=== PATIENT | female | born 1965 | race Caucasian/White ===

== ENCOUNTER 2018-03-20 13:49 | Day surgery (SDC) | payer OTHER, SELFPAY ==
[2018-03-20] MEDS ORDERED: Atropine Sulfate 1% Ophth Ointment 3.5 gm Tube ONE (14:10)
[2018-03-20] MEDS ORDERED: Lidocaine 4% PF 5 ML AMP ONE (14:10)
[2018-03-20] MEDS ORDERED: PROPOFOL 200 MG/20 ML VIAL ONE (14:10)
[2018-03-20] MEDS ORDERED: Maxitrol 0.1% Opth Oint 3.5 GM TUBE ONE (14:10)
[2018-03-20] MEDS ORDERED: ePHEDrine/0.9% NaCl/PF SYRINGE 50 mg/10 ml ONE (14:10)
[2018-03-20] MEDS ORDERED: CEFAZOLIN 1 GM VIAL ONE (14:10)
[2018-03-20] MEDS ORDERED: Lidocaine 1% PF 5 ML VIAL ONE ×2 (14:10)
[2018-03-20] MEDS ORDERED: Ondansetron PF 4 MG/2 ML Vial ONE ×2 (14:10→14:35)
[2018-03-20] MEDS ORDERED: Bupivacaine 0.75% 10 ML AMP ONE (14:10)
[2018-03-20] MEDS ORDERED: Triamcinolone 40 MG/ML VIAL ONE (14:10)
[2018-03-20 14:20] LABS: #Basophils 0.1 thou/uL (0.0-0.2); #Eosinphils 0.1 thou/uL (0.0-0.7); #Lymphocytes 2.7 thou/uL (1.20-3.40); #Monocytes 0.5 thou/uL (0.11-0.59); #Neutrophils 5.9 thou/uL (1.40-6.50); %Basophils 1.3 % (0.0-1.0); %Eosinophils 1.5 % (0.0-10.0); %Lymphocytes 28.8 % (21.0-51.0); %Monocytes 5.3 % (0.0-10.0); %Neutrophils 63.1 % (42.0-75.0); Hemoglobin 10.1 g/dL (12.0-16.0); Mean Corpuscular HGB CONC 33.2 g/dL (32.0-36.0); Mean Corpuscular Hemoglobin 29.1 pg (27.0-31.0); Mean Corpuscular Volume 87.7 fL (78.0-98.0); Mean Platelet Volume 6.6 fL (7.4-10.4); Platelet Count 349 thou/uL (130-400); RBC Distribution Width 13.3 % (11.5-14.5); Red Blood Cell (RBC) Count 3.47 mill/uL (4.20-5.40); White Blood Cell (WBC) Count 9.3 thou/uL (4.8-10.8)
[2018-03-20] MEDS ORDERED: EPINEPHrine 0.3 MG, Dextrose 50% 3 ML in Ophthalmic Irrigation Solution 500 ML FS SCH (14:31)
[2018-03-20] MEDS ORDERED: Morphine 4 MG/ML VIAL ONE (14:35)
[2018-03-20 14:38] LABS: ALT (SGPT) 13 U/L (8-55); AST (SGOT) 16 U/L (5-34); Albumin 2.9 g/dL (3.5-5.0); Alkaline Phosphatase 65 U/L (40-150); Anion Gap 10 mmol/L (10-20); BUN (Urea Nitrogen) 14 mg/dL (9.8-20.1); Bilirubin, Total 0.2 mg/dL (0.2-1.2); Calc. Creatinine Clearance 0 mL/min (70-130); Calcium 8.8 mg/dL (7.8-10.44); Carbon Dioxide 28 mmol/L (22-29); Chloride 104 mmol/L (98-107); Estimated GFR-MDRD 59; Globulin 3.1 g/dL (2.4-3.5); Glucose 151 mg/dL (70-105); Potassium 3.8 mmol/L (3.5-5.1); Sodium 138 mmol/L (136-145)
[2018-03-20 14:41] LABS: PTT 36.9 SEC (22.9-36.1); Prothrombin Time 22.9 SEC (12.0-14.7)
[2018-03-20] MEDS ORDERED: Phenylephrine 2.5% Ophth Soln 5 ML BOT ONE (16:20)
[2018-03-20] MEDS ORDERED: Cyclopentolate 1% Opth Drop 2 ML BOT ONE (16:20)
[2018-03-20] MEDS ORDERED: Fentanyl 100 MCG/2 ML VIAL ONE ×2 (17:06→17:24)
--- NOTE | 2018-03-21 03:34 | OP ---
DATE OF PROCEDURE: 03/20/2018 PREOPERATIVE DIAGNOSIS: Neovascular glaucoma, left eye. POSTOPERATIVE DIAGNOSIS: Neovascular glaucoma, left eye. PROCEDURES PERFORMED: Pars plana vitrectomy, membrane peel, panretinal photocoagulation, tube shunt, and scleral patch graft; left eye. ANESTHESIA: General endotracheal anesthesia. PROCEDURE IN DETAIL: The patient was identified in the preoperative holding area. Appropriate informed consent for the planned surgical procedure on the left eye had been obtained. The patient was transported to the operative suite. Appropriate cardiopulmonary monitoring was established. General endotracheal anesthesia was initiated. A retroorbital block was placed. The patient was prepped and draped in the usual sterile manner for ophthalmic surgery in left eye. Lid speculum was placed in the left eye. A FP7 tube shunt was placed through a conjunctival incision superotemporally, fixated in place with 5-0 Mersilene sutures. Trocar was placed superotemporally, inferotemporally, and superonasally. Infusion line was placed inferotemporally, and light pipe vitreous cutter was inserted into the eye. Core vitrectomy was performed. Posterior hyaloid face was elevated, and membranes were peeled and trimmed off the retinal surface. Panretinal photocoagulation was placed into all nontreated areas of the retina. Tube shunt was introduced through the superior temporal sclerotomy and a tutoplast graft was placed over the tube shunt and and fixated in place with 7-0 Vicryl suture. Conjunctiva was placed with 6-0 plain gut suture. Retrobulbar Kenalog and subconjunctival Ancef were placed. Atropine antibiotic ointment was placed. Eye was patched and shielded. The patient was taken to postoperative recovery unit in good condition having suffered no immediate perioperative complications. The patient was instructed to keep patch and shield on, avoid lifting and bending. Followup appointment with Dr. Rodriguez. Job ID: [id number] [facility]
== END 2018-03-20 20:43 | disposition home or self-care (01) ==
LOC: ERS 13:49 → SDC 16:20
PROVIDERS: ATTEND Ophthalmology Retina Specialist
PROC: 08NF3ZZ Release Left Retina, Percutaneous Approach (ICD-10-PCS; principal; 2018-03-20)
PROC: 08T53ZZ Resection of Left Vitreous, Percutaneous Approach (ICD-10-PCS; principal; 2018-03-20)
PROC: 08133J4 Bypass Left Anterior Chamber to Sclera with Synthetic Substitute, Percutaneous Approach (ICD-10-PCS; principal; 2018-03-20)
DX: H40.89 Other specified glaucoma (principal); H40.2223 Chronic angle-closure glaucoma, left eye, severe stage; H43.12 Vitreous hemorrhage, left eye; I25.2 Old myocardial infarction; E11.319 Type 2 diabetes mellitus with unspecified diabetic retinopathy without macular edema; G47.30 Sleep apnea, unspecified; E78.5 Hyperlipidemia, unspecified; I10 Essential (primary) hypertension; F17.210 Nicotine dependence, cigarettes, uncomplicated; E66.9 Obesity, unspecified; Z86.73 Personal history of transient ischemic attack (TIA), and cerebral infarction without residual deficits; Z88.8 Allergy status to other drugs, medicaments and biological substances
CPT/HCPCS: 36415; 80053; 85025; 85610; 85730; 93005; 96361; 96374; 96375; J0171; J0690; J2001; J2270; J2405; J2704; J3010; J3301; J3490

== ENCOUNTER 2019-10-14 20:33 | Inpatient (IN) | payer OTHER ==
[~2019-10-14 20:33] MED LIST: Iopamidol-370 76% 500 ML 1 ML ONE
--- NOTE | 2019-10-14 20:51 | CT ---
CT Brain WO Con: 10/14/2019 8:38 PM CLINICAL HISTORY: Level 1 stroke with right-sided weakness. IMAGING TECHNIQUE: Multiple CT images were obtained of the brain without IV contrast. COMPARISON: MR the brain from [facility] dated May 25, [address] of the h ead dated every 2019 FINDINGS: BRAIN: Evidence of acute infarct: None. Evidence of chronic ischemic change:The moderate to severe chronic small vessel white matter ischemic changes similar appearing. Remote lacunar infarcts involving the subcortical left frontal lobe, bilateral thalami and brainstem appear similar. Evidence of intracranial hemorrhage: None. Evidence of midline shift: Third ventricle and septum pellucidum are midline. Ventricles: Normal. No hydrocephalus. SKULL: Intact. VISUALIZED PARANASAL SINUSES: Clear. MASTOID AIR CELLS: Clear. EXTRACRANIAL SOFT TISSUES: Normal. IMPRESSION: 1. No acute intracranial abnormality. 2. Stable chronic ischemic change. 3. Findings called to Dr. Garcia at 8:47 PM on October 14, 2019
[2019-10-14 20:58] LABS: #Basophils 0.1 thou/uL (0.0-0.2); #Eosinphils 0.2 thou/uL (0.0-0.7); #Monocytes 0.5 thou/uL (0.11-0.59); #Neutrophils 5.7 thou/uL (1.40-6.50); %Basophils 0.8 % (0.0-1.0); %Eosinophils 2.6 % (0.0-10.0); %Lymphocytes 23.7 % (21.0-51.0); %Monocytes 6.2 % (0.0-10.0); %Neutrophils 66.8 % (42.0-75.0); Hemoglobin 12.1 g/dL (12.0-16.0); Mean Corpuscular HGB CONC 33.4 g/dL (32.0-36.0); Mean Corpuscular Hemoglobin 30.5 pg (27.0-31.0); Mean Corpuscular Volume 91.2 fL (78.0-98.0); Mean Platelet Volume 7.4 fL (7.4-10.4); Platelet Count 316 thou/uL (130-400); RBC Distribution Width 11.6 % (11.5-14.5); Red Blood Cell (RBC) Count 3.99 mill/uL (4.20-5.40); White Blood Cell (WBC) Count 8.6 thou/uL (4.8-10.8)
[2019-10-14 21:03] LABS: INR-International Normal Ratio 0.9; PTT 27.6 sec (22.9-36.1); Prothrombin Time 12.1 sec (12.0-14.7)
[2019-10-14 21:13] LABS: ALT (SGPT) 8 U/L (8-55); AST (SGOT) 10 U/L (5-34); Albumin 2.8 g/dL (3.5-5.0); Alkaline Phosphatase 70 U/L (40-110); Anion Gap 12 mmol/L (10-20); BUN (Urea Nitrogen) 31 mg/dL (9.8-20.1); Bilirubin, Total 0.2 mg/dL (0.2-1.2); CK (CPK) 71 U/L (29-168); Calc. Creatinine Clearance 0 mL/min (70-130); Calcium 8.2 mg/dL (7.8-10.44); Carbon Dioxide 21 mmol/L (22-29); Chloride 108 mmol/L (98-107); Estimated GFR-MDRD 24; Globulin 3.3 g/dL (2.4-3.5); Glucose 148 mg/dL (70-105); Potassium 4.2 mmol/L (3.5-5.1); Protein, Total 6.1 g/dL (6.0-8.3); Sodium 137 mmol/L (136-145)
[2019-10-14] MEDS ORDERED: niCARdipine 20MG In NaCl 20 MG/200 ML BAG ONE (21:20)
--- NOTE | 2019-10-14 21:20 | CT ---
CTA of the head with IV contrast and 3-D reformatted imaging. CTA of the neck with IV contrast and 3-D reformatted imaging. INDICATION: Level 1 stroke with right-sided weakness COMPARISON: None FINDINGS: CTA OF THE HEAD WITH CONTRAST: CTA OF THE BRAIN: Right ICA: There are moderate calcifications involving the cavernous ICA inducing some qaoy-zq-arrah ate narrowing. No overt hemodynamically significant stenosis is demonstrated. Right MCA: Patent. Right AMBER: Patent. ACOM: Patent. Left ICA: Moderate atherosclerotic calcification is seen involving the cavernous ICA with moderate n arrowing. No hemodynamically significant stenosis is demonstrated. Left MCA: Patent. Left AMBER: Patent. PCOMs: Patent. Vertebral arteries: There is a 1.7 mm aneurysm involving the left intracranial vertebral artery on i mage 180 of series 2 this aneurysm appears partially calcified and may be partially thrombosed. Basilar Artery: There is a small punctate focus seen centrally within the lower basilar artery on a single slice (188 of series 2) suspicious for a tiny focal dissection. This is felt to persist on the coronal reformatted images but is not well-seen on the sagittal images. 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 Incidentals: None. CTA OF THE NECK WITH CONTRAST: Right CCA: There is mild calcifications involving the right carotid bulb. No hemodynamically signifi cant stenosis demonstrated. Right ICA: There is some mild atherosclerotic irregularity involving the proximal right ICA without hemodynamically significant stenosis. Right Subclavian: Patent. Right Vertebral Artery: Patent. Left CCA: The left common carotid artery arises from the brachiocephalic which is a common variant. Left ICA: There is mild partially calcified atherosclerotic plaque involving the proximal left ICA w ithout hemodynamically significant stenosis. Left Subclavian: Patent. Left Vertebral Artery: There is moderate narrowing involving the origin of the left vertebral artery . The remaining course of the left vertebral artery appears patent. Aerodigestive tract: Clear. Parotids/Submandibular/Thyroid glands: Normal. Lymph nodes: No pathologically enlarged lymph nodes. Lung Apices: Clear. Bones: No acute osseous abnormality. Incidentals: None. IMPRESSION: 1. Small suspected focal dissection flap versus intraluminal thrombus of the lower basilar artery. 2. 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 There is a small calcification associated with this outpouching and may reflect that it is partially thrombosed. 3. Moderate narrowing of the origin of the left vertebral artery. 4. Findings called to Dr. Garcia at 9:15 PM on October 14, 2019
[2019-10-14 22:00] LABS: INR-International Normal Ratio 0.9; PTT 27.4 sec (22.9-36.1); Prothrombin Time 12.4 sec (12.0-14.7)
[2019-10-14] MEDS ORDERED: hydrALAZINE 20 MG/ML VIAL ONE (22:20)
[2019-10-14] MEDS ORDERED: Nitroglycerin 2% Ointment 1 INCH/1 GM Packet ONE (22:20)
[2019-10-14] MEDS ORDERED: cloNIDine 0.1 MG TAB PO PRN (22:59)
[2019-10-14] MEDS ORDERED: Promethazine HCl 12.5 MG in Sodium Chloride 0.9% 50 ML IVPB PRN (22:59)
[2019-10-14] MEDS ORDERED: niCARdipine 25 MG in Sodium Chloride 0.9% 250 ML 240 ML IVPB SCH (23:00)
[2019-10-14] MEDS ORDERED: Senokot S 8.6-50 MG TAB PO PRN (23:01)
[2019-10-14] MEDS ORDERED: Bisacodyl 5 MG TAB PO PRN (23:01)
[2019-10-14] MEDS ORDERED: Bisacodyl 10 MG SUPP PR PRN (23:01)
--- NOTE | 2019-10-14 23:06 | PDOC.HHP ---
Hospitalist HPI - History of Present Illness slurred speech, disorientation, headaches and R sided weakness History of Present Illness: Patient is a 53 year old female with PMH CAD, strokes who presents to ED for 2 days of slurred speech, disorientation, headaches and R sided weakness. Patient does not exactly know her home medicines, and is unsure if she has been taking them correctly. She has had several strokes before as well as CAD w/ stents, normally goes to [facility], and sees Dr Gutierrez PCP, Dr Perez cardiology and Dr Booker of neurology. She is not tPA candidate due to duration of symptoms over 6 hours. I did not personally observe these symptoms, as initial blood pressure 214/143 and patient started on cardene drip, BP improved to SBP in 160s, and symptoms all resolved. She is vomiting and nauseous , being trialed on PO meds to see if can wean drip but so far unsuccessful especially with vomiting. In ED, tni mildly elevated, EKG without emergent findings, imaging revealed on CTA suspected focal dissection flap versus intraluminal thrombus of the lower basilar artery, small 1.7 mm aneurysm projecting off the anterior margin of the intracranial left vertebral artery, small calcification associated with this outpouching may reflect partially thrombosis and moderate narrowing of the origin of the left vertebral artery. Dr Rodriguez consulted and did not see a thrombus that would warrant extraction or IV TPA or intra-arterial TPA. He does not believe that is a dissection flap. Patient be admitted to the ICU for hypertensive emergency rule out CVA. Hospitalist ROS - Review of Systems Constitutional: reports: weakness, malaise. denies: fever, chills, sweats, other Eyes: denies: pain, vision change, conjunctivae inflammation, eyelid inflammation, redness, other ENT: reports: other (slurred speech). denies: ear pain, ear discharge, nose pain, nose discharge, nose congestion, mouth pain, mouth swelling, throat pain, throat swelling Respiratory: denies: cough, dry, shortness of breath, hemoptysis, SOB with excertion, pleuritic pain, sputum, wheezing, other Cardiovascular: denies: chest pain, palpitations, orthopnea, paroxysmal noc. dyspnea, edema, light headedness, other Gastrointestinal: denies: nausea, vomiting, abdominal pain, diarrhea, constipation, melena, hematochezia, other Genitourinary: denies: dysuria, frequency, incontinence, hematuria, retention, other Musculoskeletal: denies: neck pain, shoulder pain, arm pain, back pain, hand pain, leg pain, foot pain, other Skin: denies: rash, lesions, justyn, bruising, other Neurological: reports: weakness, numbness, other (r sided weakness and numbness now resolved) All other systems reviewed; all pertinent +/- noted in HPI/Subj Hospitalist History - Past Medical History Other Medical History: CAD/GA CEDRIC T2DM HLD HTN stroke x 10 most recent feb this year DM retinopathy - Past Surgical History Other Surgical History: Surgical history of gastric bypass, Notes: 03/07/2016, SURGERY FOR CELLULITIS, CARPAL TUNNEL SURGERY (1989) LEFT KNEE SURGERY (1999), Surgical history of section, Notes: 3 C- SECTIONS., RECENTLY ON MAY 2012 TO WASH OUT ABSCESS. uterus ablation. LEFT AND RIGHT EYE SX FOR GLAUCOMA. - Family History Other Family History: glaucoma, COPD, stroke, Diabetes, high blood pressure. - Social History Smoking Status: Former smoker Drugs: reports: none - Exam General Appearance: NAD, awake alert Eye: PERRL, anicteric sclera ENT: normocephalic atraumatic, no oropharyngeal lesions, moist mucosa Neck: supple, symmetric, no JVD, no thyromegaly, no lymphadenopathy, no carotid bruit Heart: RRR, no murmur, no gallops, no rubs, normal peripheral pulses Respiratory: CTAB, no wheezes, no rales, no ronchi, normal chest expansion, no tachypnea, normal percussion Gastrointestinal: soft, non-tender, non-distended, normal bowel sounds, no palpable masses, no hepatomegaly, no splenomegaly, no bruit Extremities: no cyanosis, no clubbing, no edema Skin: normal turgor, no lesions, no rashes Neurological: cranial nerve grossly intact, normal sensation to touch, no weakness, no focal deficits, no new deficit Musculoskeletal: normal tone, normal strength, no muscle wasting Psychiatric: normal affect, normal behavior, A&O x 3 Hospitalist Results - Labs Result Diagrams: 10/14/19 20:40 10/14/19 20:40 Lab results: WBC 8.6 thou/uL (4.8-10.8) 10/14/19 20:40 Hgb 12.1 g/dL (12.0-16.0) 10/14/19 20:40 Hct 36.3 % (36.0-47.0) 10/14/19 20:40 MCV 91.2 fL (78.0-98.0) 10/14/19 20:40 Plt Count 316 thou/uL (130-400) 10/14/19 20:40 Neutrophils % 66.8 % (42.0-75.0) 10/14/19 20:40 Sodium 137 mmol/L (136-145) 10/14/19 20:40 Potassium 4.2 mmol/L (3.5-5.1) 10/14/19 20:40 Chloride 108 mmol/L (98-107) H 10/14/19 20:40 Carbon Dioxide 21 mmol/L (22-29) L 10/14/19 20:40 BUN 31 mg/dL (9.8-20.1) H 10/14/19 20:40 Creatinine 2.16 mg/dL (0.6-1.1) H 10/14/19 20:40 Glucose 148 mg/dL (70-105) H 10/14/19 20:40 Calcium 8.2 mg/dL (7.8-10.44) 10/14/19 20:40 Total Bilirubin 0.2 mg/dL (0.2-1.2) 10/14/19 20:40 AST 10 U/L (5-34) 10/14/19 20:40 ALT 8 U/L (8-55) 10/14/19 20:40 Alkaline Phosphatase 70 U/L (40-110) 10/14/19 20:40 Creatine Kinase 71 U/L (29-168) 10/14/19 20:40 CK-MB (CK-2) 2.0 ng/mL (0-6.6) 10/14/19 20:40 Troponin I 0.035 ng/mL (< 0.028) H 10/14/19 20:40 Serum Total Protein 6.1 g/dL (6.0-8.3) 10/14/19 20:40 Albumin 2.8 g/dL (3.5-5.0) L 10/14/19 20:40 Additional comment: VITAL SIGNS Capac Oct 14, 2019 22:46 NAI Pretty Shelley BP: 191/92 Pulse: 98 Resp: 16 Pain: 9head O2 sat: 97 on (Room Air) Time: 10/14/2019 22:46. VITAL SIGNS Sun Oct 14, 2019 22:54 NAI Pretty Shelley BP: 183/77 Pulse: 95 Resp: 20 Pain: 9calm O2 sat: 99 on (Room Air) Time: 10/14/2019 22:54. CTA head w/wo IMPRESSION: 1. Small suspected focal dissection flap versus intraluminal thrombus of the lower basilar artery. 2. 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 There is a small calcification associated with this outpouching and may reflect that it is partially thrombosed. 3. Moderate narrowing of the origin of the left vertebral artery. 4. Findings called to Dr. Garcia at 9:15 PM on October 14, 2019 CT head without contrast IMPRESSION: 1. No acute intracranial abnormality. 2. Stable chronic ischemic change. 3. Findings called to Dr. Garcia at 8:47 PM on October 14, 2019 - EKG Interpretation EKG: reviewed by me personally, agree with ED interpretation Hospitalist H&P A/P - Plan Plan: Patient is a 53 year old female with PMH CAD, strokes who presents to ED for 2 days of slurred speech, disorientation, headaches and R sided weakness. # slurred speech, disorientation, headaches and R sided weakness due to hypertensive emergency initial blood pressure 214/143 and patient started on cardene drip, BP improved to SBP in 160s, and symptoms all resolved. In ED, tni mildly elevated, EKG without emergent findings, imaging revealed on CTA suspected focal dissection flap versus intraluminal thrombus of the lower basilar artery, small 1.7 mm aneurysm projecting off the anterior margin of the intracranial left vertebral artery, small calcification associated with this outpouching may reflect partially thrombosis and moderate narrowing of the origin of the left vertebral artery. Dr Rodriguez consulted and did not see a thrombus that would warrant extraction or IV TPA or intra-arterial TPA. He does not believe that is a dissection flap. Patient be admitted to the ICU for hypertensive emergency rule out CVA. - continue to wean cardene if able, goal bp next 24 hours would be about 25% improvement, so SBP 170-180. - admit to ICU or other based on clinical improvement - PRN HTN meds ordered, clonidine, placed on nitro patch - follow final HTN meds once med rec complete - not tPA candidate and did not do stroke order set since neuro symptoms more consistent with HTN emergency, will order MRI however. 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
[2019-10-14] MEDS ORDERED: Dextrose 50% Abboject 50 ML SYRINGE SLOW IVP PRN (23:28)
[2019-10-14] MEDS ORDERED: Dextrose 5% in Water 1,000 ML IV PRN (23:28)
[2019-10-14 23:32] LABS: Troponin I 0.032 ng/mL (< 0.028)
[2019-10-15] MEDS ORDERED: Acetaminophen 500 MG TAB ONE (00:09)
[2019-10-15 01:22] VITALS: BMI 34.0
[2019-10-15 03:53] LABS: #Basophils 0.1 thou/uL (0.0-0.2); #Eosinphils 0.2 thou/uL (0.0-0.7); #Lymphocytes 2.4 thou/uL (1.20-3.40); #Monocytes 0.5 thou/uL (0.11-0.59); #Neutrophils 6.2 thou/uL (1.40-6.50); %Basophils 0.6 % (0.0-1.0); %Eosinophils 1.9 % (0.0-10.0); %Lymphocytes 25.5 % (21.0-51.0); %Monocytes 5.4 % (0.0-10.0); %Neutrophils 66.6 % (42.0-75.0); Hemoglobin 11.4 g/dL (12.0-16.0); Mean Corpuscular HGB CONC 35.5 g/dL (32.0-36.0); Mean Corpuscular Hemoglobin 31.9 pg (27.0-31.0); Mean Corpuscular Volume 89.8 fL (78.0-98.0); Mean Platelet Volume 8.2 fL (7.4-10.4); Platelet Count 299 thou/uL (130-400); RBC Distribution Width 11.6 % (11.5-14.5); Red Blood Cell (RBC) Count 3.59 mill/uL (4.20-5.40); White Blood Cell (WBC) Count 9.4 thou/uL (4.8-10.8)
[2019-10-15 04:05] LABS: Anion Gap 11 mmol/L (10-20); BUN (Urea Nitrogen) 28 mg/dL (9.8-20.1); Calc. Creatinine Clearance 56 mL/min (70-130); Carbon Dioxide 21 mmol/L (22-29); Chloride 108 mmol/L (98-107); Estimated GFR-MDRD 29; Glucose 140 mg/dL (70-105); Magnesium 2.1 mg/dL (1.6-2.6); Potassium 3.9 mmol/L (3.5-5.1); Sodium 136 mmol/L (136-145)
[2019-10-15 04:08] LABS: Troponin I 0.033 ng/mL (< 0.028)
[2019-10-15] MEDS: hydrALAZINE 20 MG/ML VIAL SLOW IVP PRN (07:48)
[2019-10-15] MEDS: Acetaminophen 325 MG TAB PO PRN ×2 (07:52→21:42)
[2019-10-15] MEDS ORDERED: ALPRAZolam 0.25 MG TAB PO PRN (08:33)
[2019-10-15] MEDS: Famotidine 20 MG TAB PO SCH (08:35)
[2019-10-15] MEDS: Ondansetron PF 4 MG/2 ML Vial IVP PRN (10:24)
[2019-10-15] MEDS: Labetalol HCl 100 MG/20 ML VIAL SLOW IVP PRN (10:33)
--- NOTE | 2019-10-15 10:33 | MRI ---
MRI BRAIN WITHOUT CONTRAST: INDICATION: Right-sided defects which have resolved. FINDINGS: Ventricles show normal size and position. Mild cortical volume loss which is prominent for patient's age. Moderate chronic ischemic white matter changes also prominent for patient's age. No evidence of restricted diffusion. No mass, edema, or infarct seen. Evidence of prominent ischemic changes in the brainstem at the level of the bruno and at the cerebral peduncles. Evidence of old lacunar infarcts in both basal ganglia regions. The intracranial internal carotid arteries show flow voids. See yesterday's CTA for further characte rization of the cerebral vasculature. IMPRESSION: 1. No evidence of acute infarct. 2. Moderate chronic ischemic white matter changes and chronic ischemic brainstem changes. 3. Evidence of old lacunar infarcts. POS: AH
[2019-10-15] MEDS ORDERED: hydrALAZINE 25 MG TAB PO SCH (11:15)
[2019-10-15] MEDS: HumaLOG 300 UNITS/3 ML VIAL SC PRN ×2 (11:23→23:58)
[2019-10-15 12:00] LABS: Troponin I 0.017 ng/mL (< 0.028)
--- NOTE | 2019-10-15 14:24 | CT ---
CTA of the head with IV contrast and 3-D reformatted imaging. CTA of the neck with IV contrast and 3-D reformatted imaging. INDICATION: Level 1 stroke with right-sided weakness COMPARISON: None FINDINGS: CTA OF THE HEAD WITH CONTRAST: CTA OF THE BRAIN: Right ICA: There are moderate calcifications involving the cavernous ICA inducing some jkog-my-lggcj ate narrowing. No overt hemodynamically significant stenosis is demonstrated. Right MCA: Patent. Right AMBER: Patent. ACOM: Patent. Left ICA: Moderate atherosclerotic calcification is seen involving the cavernous ICA with moderate n arrowing. No hemodynamically significant stenosis is demonstrated. Left MCA: Patent. Left AMBER: Patent. PCOMs: Patent. Vertebral arteries: There is a 1.7 mm aneurysm involving the left intracranial vertebral artery on i mage 180 of series 2 this aneurysm appears partially calcified and may be partially thrombosed. Basilar Artery: There is a small punctate focus seen centrally within the lower basilar artery on a single slice (188 of series 2) suspicious for a tiny focal dissection. This is felt to persist on the coronal reformatted images but is not well-seen on the sagittal images. injection specialist: Patent. Incidentals: None. CTA OF THE NECK WITH CONTRAST: Right CCA: There is mild calcifications involving the right carotid bulb. No hemodynamically signifi cant stenosis demonstrated. Right ICA: There is some mild atherosclerotic irregularity involving the proximal right ICA without hemodynamically significant stenosis. Right Subclavian: Patent. Right Vertebral Artery: Patent. Left CCA: The left common carotid artery arises from the brachiocephalic which is a common variant. Left ICA: There is mild partially calcified atherosclerotic plaque involving the proximal left ICA w ithout hemodynamically significant stenosis. Left Subclavian: Patent. Left Vertebral Artery: There is moderate narrowing involving the origin of the left vertebral artery . The remaining course of the left vertebral artery appears patent. Aerodigestive tract: Clear. Parotids/Submandibular/Thyroid glands: Normal. Lymph nodes: No pathologically enlarged lymph nodes. Lung Apices: Clear. Bones: No acute osseous abnormality. Incidentals: None. IMPRESSION: 1. Small suspected focal dissection flap versus intraluminal thrombus of the lower basilar artery. 2. 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 There is a small calcification associated with this outpouching and may reflect that it is partially thrombosed. 3. Moderate narrowing of the origin of the left vertebral artery. 4. Findings called to Dr. Garcia at 9:15 PM on October 14, 2019 Transcribed Date/Time: 10/15/2019 2:24 PM
[2019-10-15] MEDS: hydrALAZINE 25 MG TAB PO SCH ×2 (14:33→21:42)
[2019-10-15] MEDS ORDERED: NIFEdipine XL 30 MG TAB PO SCH (15:15)
[2019-10-15] MEDS: HYDROcodone/Acetaminophen 5/325 mg Tablet PO PRN (15:15)
--- NOTE | 2019-10-15 15:58 | CON ---
DATE OF CONSULTATION: 10/15/2019 REASON FOR CONSULTATION: Uncontrolled hypertension, possible stroke. PRIMARY MAINTENANCE ASSOCIATE: Dr. Mic Kong at [facility]. HISTORY OF PRESENT ILLNESS: Ms. Sanchez is a 53-year-old woman, who came to the hospital last night with a possible stroke with difficulty speaking. She has undergone evaluation here including MRI. There is no evidence of any acute ischemic event. However, she has had uncontrolled hypertension. She was placed in the intensive care unit. She denies chest pain or pressure. She is not short of breath. The patient tells me "I've had several heart attacks", but she says she has never had a heart catheterization. I spoke with the patient's over the phone. From his description, it sounds like she had an atrial septal defect or patent foramen ovale closure by Dr. Kong, but no other intervention as far as we know. She has been to [facility], she has been to [facility] with cardiac difficulties. Unfortunately, none of these records are available to us. MEDICATIONS: Include; 1. Eliquis 5 mg twice a day. 2. Atorvastatin. 3. Nicotine patch. 4. Lisinopril 10 mg a day. 5. Tramadol. ALLERGIES: TO AMITRIPTYLINE AND PROPOXYPHENE. OTHER PAST HISTORY: Apparently, she has had bariatric surgery in the past. REVIEW OF SYSTEMS: CONSTITUTIONAL: No significant weight gain or loss recently. VISION: No changes. HEARING: No changes. PULMONARY: No cough or wheezing. GASTROINTESTINAL: No nausea, vomiting, or diarrhea. SKIN: No rashes. NEUROLOGIC: No unilateral weakness or numbness. PSYCHIATRIC: No unusual depression or anxiety. EXTREMITIES: The patient is able to move all her extremities. PHYSICAL EXAMINATION: GENERAL: This is a 53-year-old woman. VITAL SIGNS: Blood pressure 167/96. She was on nicardipine drip initially. HEENT: Eyes, sclerae are nonicteric. Mouth, mucous membranes moist. NECK: Supple. No lymphadenopathy. LUNGS: Clear. CARDIAC: Normal S1, normal S2. No murmur, rub, or gallop. ABDOMEN: Obese and nontender. EXTREMITIES: Warm and dry. No clubbing or cyanosis. No edema. PERTINENT LABORATORY DATA: Creatinine is 1.8. Troponin 0.032, probably demand ischemia. EKG; sinus rhythm, no acute ST changes. There is a premature ventricular contraction noted. Echocardiogram shows moderate to severe global concentric left ventricular hypertrophy. EKG in the emergency room was listed as 192/90 and also 211/140. ASSESSMENT: 1. Hypertension with hypertensive emergency. 2. Likely long-standing poorly controlled high blood pressure based on the echocardiogram. 3. The patient's tells me that she has been told she has a "small vessel disease.". 4. Brain MRI compatible with moderate chronic ischemic white matter changes. PLAN: 1. Add Procardia XL. 2. We will stop hydralazine. 3. We will follow with you. 4. Will need to follow up closely with Dr. Kong as an outpatient. Job ID: [id number]
--- NOTE | 2019-10-15 18:36 | PDOC.HOSPP ---
- Subjective Encounter Date: 10/15/19 Encounter Time: 11:20 Subjective: Pt seen for followup re: hypertensive emergency Feels slightly better. - Objective Vital Signs & Weight: Vital Signs (12 hours) Temp Pulse Pulse Pulse Resp BP BP 10/15/19 16:00 98.8 F 10/15/19 15:17 91 147/81 H 10/15/19 15:08 92 92 147/81 H 10/15/19 14:33 88 167/96 H 10/15/19 12:00 98.7 F 10/15/19 11:25 85 171/98 H 10/15/19 11:00 84 17 10/15/19 10:45 82 18 10/15/19 10:33 92 239/116 H 10/15/19 10:30 91 20 10/15/19 08:00 98.9 F 10/15/19 07:56 10/15/19 07:48 88 191/94 H BP BP Pulse Ox Pulse Ox Pulse Ox 10/15/19 16:00 10/15/19 15:17 10/15/19 15:08 156/96 H 100 100 10/15/19 14:33 10/15/19 12:00 10/15/19 11:25 10/15/19 11:00 155/104 H 99 10/15/19 10:45 182/90 H 98 10/15/19 10:33 10/15/19 10:30 239/116 H 99 10/15/19 08:00 10/15/19 07:56 100 10/15/19 07:48 Weight Weight 223 lb 8.78 oz Most Recent Monitor Data Heart Rate from ECG 90 NIBP 135/72 NIBP BP-Mean 93 Respiration from ECG 12 SpO2 99 I&O: 10/14/19 10/15/19 10/16/19 06:59 06:59 06:59 Intake Total 492.1 600 Output Total 900 950 Balance -407.9 -350 Result Diagrams: 10/15/19 03:40 10/15/19 03:40 Additional Labs: Accuchecks 10/15/19 10/15/19 10/15/19 16:07 11:25 05:49 POC Glucose 133 H 162 H 105 10/14/19 20:43 POC Glucose 139 H Labs and MARs reviewed by me EKG Reviewed by me: Yes (Tele: NSR) Hospitalist ROS - Review of Systems Constitutional: denies: fever, chills, sweats, weakness, malaise Respiratory: denies: cough, dry, shortness of breath, hemoptysis, SOB with excertion, pleuritic pain, sputum, wheezing Cardiovascular: denies: chest pain, palpitations, orthopnea, paroxysmal noc. dyspnea, edema, light headedness Gastrointestinal: denies: nausea, vomiting, abdominal pain, diarrhea, constipation, melena, hematochezia Neurological: reports: weakness, change in speech. denies: numbness, incoordination, confusion, seizures - Medication Medications: Active Medications Generic Name Dose Route Start Last Admin Trade Name Freq PRN Reason Stop Dose Admin Acetaminophen 650 mg 10/14/19 22:59 10/15/19 07:52 Tylenol PO 650 mg Q4H PRN Administration Headache/Fever/Mild Pain (1-3) Hydrocodone Bitart/Acetaminophen 1 tab 10/14/19 22:59 10/15/19 15:15 [place] 5/325 PO 1 tab Q4H PRN Administration Moderate Pain (4-6) Alprazolam 0.25 mg 10/15/19 08:33 10/15/19 08:35 Xanax PO 10/15/19 23:00 0.25 mg ONE PRN Administration FOR MRI Famotidine 20 mg 10/15/19 09:00 10/15/19 08:35 Pepcid PO 20 mg QAM JENNIFER Administration Hydralazine HCl 10 mg 10/14/19 22:59 10/15/19 07:48 Apresoline SLOW IVP 10 mg Q6H PRN Administration SBP GREATER THAN 160 Hydralazine HCl 50 mg 10/15/19 15:00 10/15/19 14:33 Apresoline PO 50 mg TID JENNIFER Administration Insulin Human Lispro 0 units 10/14/19 23:28 10/15/19 11:23 Humalog SC 2 unit .MILD SLIDING SCALE PRN Administration Mild Correctional Scale Labetalol HCl 20 mg 10/14/19 22:59 10/15/19 10:33 Normodyne SLOW IVP 20 mg Q4H PRN Administration SBP > 160 use third Ondansetron HCl 4 mg 10/14/19 22:59 10/15/19 10:24 Zofran IVP 4 mg Q6H PRN Administration Nausea/Vomiting use 1st - Exam General - other findings: Obese Eye: anicteric sclera ENT: moist mucosa Neck: supple, symmetric, no thyromegaly, no lymphadenopathy Heart: RRR, no gallops, no rubs, normal peripheral pulses Respiratory: CTAB, no wheezes, no rales, no ronchi Gastrointestinal: soft, non-tender, non-distended, normal bowel sounds Extremities: no cyanosis Neurological: speech deficit Neurological - other findings: R weakness Psychiatric: normal affect, normal behavior, oriented to person, oriented to place Hosp A/P - Plan # hypertensive emergency Wean off of cardene drip, transition to oral antihypertensives. # history of CAD - continue home meds once med rec complete # DM - SSI # elevated troponin - consult cardiology # renal insufficiency -lisinopril on hold
[2019-10-15] MEDS ORDERED: traMADol HCl 50 MG TAB PO PRN (18:39)
[2019-10-15] MEDS: Ipratropium/Albuterol Sulfate 4 GM AER IH SCH (19:24)
[2019-10-15] MEDS: Apixaban 5 MG TAB PO SCH (22:02)
[2019-10-16] MEDS: Labetalol HCl 100 MG/20 ML VIAL SLOW IVP PRN ×2 (00:01→10:54)
[2019-10-16] MEDS: hydrALAZINE 20 MG/ML VIAL SLOW IVP PRN (04:36)
[2019-10-16 05:06] LABS: #Eosinphils 0.3 thou/uL (0.0-0.7); #Lymphocytes 2.4 thou/uL (1.20-3.40); #Monocytes 0.5 thou/uL (0.11-0.59); #Neutrophils 4.9 thou/uL (1.40-6.50); %Basophils 0.6 % (0.0-1.0); %Eosinophils 3.4 % (0.0-10.0); %Lymphocytes 29.4 % (21.0-51.0); %Neutrophils 60.6 % (42.0-75.0); Hemoglobin 11.3 g/dL (12.0-16.0); Mean Corpuscular HGB CONC 34.5 g/dL (32.0-36.0); Mean Corpuscular Hemoglobin 31.5 pg (27.0-31.0); Mean Corpuscular Volume 91.4 fL (78.0-98.0); Mean Platelet Volume 7.6 fL (7.4-10.4); Platelet Count 285 thou/uL (130-400); RBC Distribution Width 11.8 % (11.5-14.5); Red Blood Cell (RBC) Count 3.59 mill/uL (4.20-5.40)
[2019-10-16 05:27] LABS: Anion Gap 11 mmol/L (10-20); BUN (Urea Nitrogen) 31 mg/dL (9.8-20.1); Calc. Creatinine Clearance 49 mL/min (70-130); Calcium 8.2 mg/dL (7.8-10.44); Carbon Dioxide 21 mmol/L (22-29); Chloride 108 mmol/L (98-107); Estimated GFR-MDRD 25; Glucose 96 mg/dL (70-105); Magnesium 2.2 mg/dL (1.6-2.6); Potassium 3.8 mmol/L (3.5-5.1); Sodium 136 mmol/L (136-145)
[2019-10-16] MEDS: Ipratropium/Albuterol Sulfate 4 GM AER IH SCH (06:54)
[2019-10-16] MEDS: Ezetimibe 10 MG TAB PO SCH (08:57)
[2019-10-16] MEDS: Venlafaxine HCl XR 75 MG CAP PO SCH (08:57)
[2019-10-16] MEDS: hydrALAZINE 25 MG TAB PO SCH (08:57)
[2019-10-16] MEDS: Atorvastatin Calcium 20 MG TAB PO SCH (08:58)
[2019-10-16] MEDS: Famotidine 20 MG TAB PO SCH (08:59)
[2019-10-16] MEDS: Nicotine 21 MG PATCH TD SCH (08:59)
[2019-10-16] MEDS: Apixaban 5 MG TAB PO SCH ×2 (08:59→21:35)
[2019-10-16] MEDS ORDERED: Lisinopril 10 MG TAB PO SCH (09:00)
[2019-10-16] MEDS ORDERED: NIFEdipine XL 30 MG TAB PO SCH ×2 (09:00→10:15)
--- NOTE | 2019-10-16 09:01 | PDOC.HOSPP ---
- Subjective Encounter Date: 10/16/19 Encounter Time: 11:00 Subjective: Patient seen and examined for HTN crisis. No new focal deficits. No epistaxis. No new complaints. No overnight events - Objective Vital Signs & Weight: Vital Signs (12 hours) Temp Pulse Resp BP BP BP Pulse Ox 10/16/19 08:58 91 185/88 H 10/16/19 08:57 91 185/88 H 10/16/19 07:47 98.0 F 93 16 162/79 H 98 10/16/19 04:36 88 10/16/19 04:00 97.9 F 88 16 188/90 H 97 10/16/19 00:30 97.4 F L 87 16 149/80 H 97 10/16/19 00:01 90 179/96 H 10/16/19 00:00 98.6 F 10/15/19 21:42 90 131/64 Weight Weight 223 lb 8.78 oz Most Recent Monitor Data Heart Rate from ECG 94 NIBP 179/96 NIBP BP-Mean 123 Respiration from ECG 20 SpO2 100 I&O: 10/15/19 10/16/19 10/17/19 06:59 06:59 06:59 Intake Total 492.1 840 Output Total 900 1250 Balance -407.9 -410 Result Diagrams: 10/17/19 04:24 10/17/19 04:24 Additional Labs: Accuchecks 10/16/19 10/16/19 10/15/19 06:44 00:01 16:07 POC Glucose 100 207 H 133 H 10/15/19 11:25 POC Glucose 162 H Radiology Reviewed by me: Yes (MRI brain - no CVA) EKG Reviewed by me: Yes (Tele SR) Hospitalist ROS - Review of Systems Respiratory: denies: cough, dry, shortness of breath, hemoptysis, SOB with excertion, pleuritic pain, sputum, wheezing, other Cardiovascular: denies: chest pain, palpitations, orthopnea, paroxysmal noc. dyspnea, edema, light headedness, other - Medication Medications: Active Medications Generic Name Dose Route Start Last Admin Trade Name Freq PRN Reason Stop Dose Admin Acetaminophen 650 mg 10/14/19 22:59 10/15/19 21:42 Tylenol PO 650 mg Q4H PRN Administration Headache/Fever/Mild Pain (1-3) Hydrocodone Bitart/Acetaminophen 1 tab 06/28/20 22:59 10/15/19 15:15 [place] 5/325 PO 1 tab Q4H PRN Administration Moderate Pain (4-6) Albuterol/Ipratropium 3 ml 10/14/19 22:59 10/15/19 19:22 Duoneb NEB 3 ml [id number] PRN Administration SOB &/or Wheezing Albuterol/Ipratropium 1 gm 10/15/19 19:00 10/16/19 06:54 Combivent Respimat 20-100 Mcg IH 1 gm QID-RT JENNIFER Administration Apixaban 5 mg 10/15/19 21:00 10/16/19 08:59 Eliquis PO 5 mg BID JENNIFER Administration Atorvastatin Calcium 80 mg 10/16/19 09:00 10/16/19 08:58 Lipitor PO 80 mg DAILY JENNIFER Administration Ezetimibe 10 mg 10/16/19 09:00 10/16/19 08:57 Zetia PO 10 mg DAILY JENNIFER Administration Famotidine 20 mg 10/15/19 09:00 10/16/19 08:59 Pepcid PO Not Given QAM [facility] Hydralazine HCl 10 mg 10/14/19 22:59 10/16/19 04:36 Apresoline SLOW IVP 10 mg Q6H PRN Administration SBP GREATER THAN 160 Hydralazine HCl 50 mg 10/15/19 15:00 10/16/19 08:57 Apresoline PO 50 mg TID JENNIFER Administration Insulin Human Lispro 0 units 10/14/19 23:28 10/15/19 23:58 Humalog SC 3 unit .MILD SLIDING SCALE PRN Administration Mild Correctional Scale Labetalol HCl 20 mg 10/14/19 22:59 10/16/19 00:01 Normodyne SLOW IVP 20 mg Q4H PRN Administration SBP > 160 use third Nicotine 21 mg 10/16/19 09:00 10/16/19 08:59 Nicoderm Patch TD 21 mg DAILY JENNIFER Administration Nifedipine 30 mg 10/16/19 09:00 10/16/19 08:58 Procardia Xl PO 30 mg DAILY JENNIFER Administration Ondansetron HCl 4 mg 10/14/19 22:59 10/15/19 10:24 Zofran IVP 4 mg Q6H PRN Administration Nausea/Vomiting use 1st Pantoprazole Sodium 40 mg 10/16/19 09:00 10/16/19 08:58 Protonix PO 40 mg DAILY JENNIFER Administration Tramadol HCl 50 mg 10/15/19 18:39 10/16/19 08:56 Ultram PO 50 mg Q8H PRN Administration Severe Pain (7-10) Venlafaxine HCl 150 mg 10/16/19 09:00 10/16/19 08:57 Effexor Xr PO 150 mg QAM JENNIFER Administration - Exam General Appearance: NAD Heart: RRR, no gallops Respiratory: no wheezes, no ronchi Gastrointestinal: non-tender, non-distended, normal bowel sounds Extremities: no cyanosis Neurological: no new deficit Hosp A/P - Plan Hypertensive emergency -s/p hailee cervantes CAD -followed by Dr Kong DM2 -on SSI HTN heart disease CKD 4 Obesity BMI 34 chronic anticoag PLAN: Cont Procardia XL DC Hydralazine on Eliquis Cont PRN meds
--- NOTE | 2019-10-16 10:24 | PRG ---
DATE OF SERVICE: 10/16/2019 SUBJECTIVE: Ms. Sanchez is awake and alert. No chest pain or pressure. OBJECTIVE: VITAL SIGNS: Blood pressure is still high at 185/88. Pulse 90 and it is regular. LUNGS: Clear. CARDIAC: Normal S1, normal S2. ABDOMEN: Soft and nontender. EXTREMITIES: Mild edema. LABORATORY DATA: Creatinine is stable at 2.09. ASSESSMENT: 1. Uncontrolled hypertension, longstanding. 2. From the history, it sounds like she probably had a patent foramen ovale or an atrial septal defect closed, probably a patent foramen ovale. 3. Stage 4 renal failure. PLAN: 1. Increase Procardia XL to 60 mg a day. 2. Add beta blockers. 3. TROY inhibitors are on hold in view of renal failure. Job ID: [id number]
[2019-10-16] MEDS: HYDROcodone/Acetaminophen 5/325 mg Tablet PO PRN ×2 (10:53→21:35)
[2019-10-16] MEDS: HumaLOG 300 UNITS/3 ML VIAL SC PRN (12:18)
[2019-10-16] MEDS: Ondansetron PF 4 MG/2 ML Vial IVP PRN ×2 (15:50→21:35)
[2019-10-17] MEDS ORDERED: diphenhydrAMINE 50 MG CAP PO SCH (01:15)
[2019-10-17 04:48] LABS: #Basophils 0.1 thou/uL (0.0-0.2); #Eosinphils 0.3 thou/uL (0.0-0.7); #Lymphocytes 2.5 thou/uL (1.20-3.40); #Monocytes 0.5 thou/uL (0.11-0.59); #Neutrophils 4.2 thou/uL (1.40-6.50); %Eosinophils 4.3 % (0.0-10.0); %Lymphocytes 32.6 % (21.0-51.0); %Monocytes 6.7 % (0.0-10.0); %Neutrophils 55.4 % (42.0-75.0); Hemoglobin 11.4 g/dL (12.0-16.0); Mean Corpuscular HGB CONC 33.6 g/dL (32.0-36.0); Mean Corpuscular Hemoglobin 30.8 pg (27.0-31.0); Mean Corpuscular Volume 91.6 fL (78.0-98.0); Mean Platelet Volume 7.5 fL (7.4-10.4); Platelet Count 291 thou/uL (130-400); RBC Distribution Width 11.8 % (11.5-14.5); Red Blood Cell (RBC) Count 3.71 mill/uL (4.20-5.40); White Blood Cell (WBC) Count 7.6 thou/uL (4.8-10.8)
[2019-10-17 05:11] LABS: Anion Gap 10 mmol/L (10-20); BUN (Urea Nitrogen) 28 mg/dL (9.8-20.1); Calc. Creatinine Clearance 52 mL/min (70-130); Calcium 8.2 mg/dL (7.8-10.44); Carbon Dioxide 23 mmol/L (22-29); Chloride 107 mmol/L (98-107); Estimated GFR-MDRD 27; Glucose 96 mg/dL (70-105); Magnesium 2.1 mg/dL (1.6-2.6); Potassium 3.9 mmol/L (3.5-5.1); Sodium 136 mmol/L (136-145)
[2019-10-17] MEDS ORDERED: NIFEdipine XL 60 MG TAB PO SCH (09:00)
[2019-10-17] MEDS: Venlafaxine HCl XR 75 MG CAP PO SCH (09:13)
[2019-10-17] MEDS: Ezetimibe 10 MG TAB PO SCH (09:14)
[2019-10-17] MEDS: Atorvastatin Calcium 20 MG TAB PO SCH (09:15)
[2019-10-17] MEDS: Nicotine 21 MG PATCH TD SCH (09:15)
[2019-10-17] MEDS: Apixaban 5 MG TAB PO SCH (09:16)
[2019-10-17] MEDS: HYDROcodone/Acetaminophen 5/325 mg Tablet PO PRN (09:16)
--- NOTE | 2019-10-17 10:30 | PRG ---
DATE OF SERVICE: 10/17/2019 SUBJECTIVE: Ms. Sanhcez is doing well. No chest pain or pressure. She feels fine. OBJECTIVE: VITAL SIGNS: Blood pressure 147/89, pulse 90 and it is sinus. LUNGS: Clear. CARDIAC: Normal S1. Normal S2. ASSESSMENT: Hypertension, historically very difficult to control, but blood pressure control is improved now. PLAN: 1. She is on Procardia XL 60 mg a day. 2. Metoprolol 25 mg a day. 3. She is on apixaban as per Dr. Kong at [facility]. 4. We will sign off. The patient will follow up with Dr. 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 Job ID: [id number]
[2019-10-17 11:16] VITALS: TEMP 98
[2019-10-17] MEDS ORDERED: Nicotine 14 MG PATCH TD PRN (12:00)
[2019-10-17 13:12] VITALS: BP 160/100
--- NOTE | 2019-10-18 11:48 | DIS ---
DATE OF ADMISSION: 10/15/2019 DATE OF DISCHARGE: 10/17/2019 DISCHARGE DISPOSITION: Home. FOLLOWUP: 1. Follow up with Dr. Kennedy in 1 week. 2. Follow up with Cardiology, Dr. Batres in 1 week. The patient was seen and examined on the day of discharge. She denies any new complaints. No chest pain, shortness of breath, palpitations reported. DISCHARGE MEDICATIONS: 1. Toprol-XL 25 mg daily. 2. Procardia XL 60 mg daily. 3. Clonidine as needed. All other home medications were left unchanged. Tobacco cessation was emphasized. BRIEF HOSPITAL COURSE: The patient is a 53-year-old female with hypertension, presented to the emergency room with altered mentation along with headaches and right-sided weakness. Workup was consistent with hypertensive crisis. She was monitored in the Intensive Care Unit and was started on Cardene drip. Initial blood pressure was 214/143. Blood pressure was gradually lowered. The patient was also evaluated by Cardiology, Dr. Humphreys. Her blood pressure on the day of discharge is in systolic 140s to 150s. An echocardiogram was obtained, that showed ejection fraction 55% to 60% with moderate to severe concentric left ventricular hypertrophy. The patient has been cleared by Cardiology for discharge. 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 The patient did not qualify for inpatient rehab. She was advised to contact her primary care physician to find a Home Health Care agency, that can accept her insurance. The family was updated. FINAL DIAGNOSES: 1. Hypertensive emergency, requiring Cardene drip. 2. Encephalopathy secondary to hypertensive emergency, present on admission. 3. Coronary artery disease. 4. Diabetes mellitus type 2. 5. Hypertensive heart disease. 6. Chronic kidney disease stage 4. 7. Obesity with a body mass index of 34. 8. Chronic anticoagulation. The patient understands the above plan of care. Job ID: [id number]
== END 2019-10-17 14:33 | disposition home or self-care (01) | DRG 305 ==
LOC: ERS 20:33 → CCU 10-15 00:59 → 2SE 10-16 01:50
PROVIDERS: ADMIT Internal Medicine; ATTEND Internal Medicine
DX: I16.1 Hypertensive emergency (principal); N18.4 Chronic kidney disease, stage 4 (severe); Q21.1 Atrial septal defect; I25.10 Atherosclerotic heart disease of native coronary artery without angina pectoris; G47.33 Obstructive sleep apnea (adult) (pediatric); E78.5 Hyperlipidemia, unspecified; I12.9 Hypertensive chronic kidney disease with stage 1 through stage 4 chronic kidney disease, or unspecified chronic kidney disease; E11.22 Type 2 diabetes mellitus with diabetic chronic kidney disease; E11.319 Type 2 diabetes mellitus with unspecified diabetic retinopathy without macular edema; E66.9 Obesity, unspecified; Z68.34 Body mass index [BMI] 34.0-34.9, adult; Z86.73 Personal history of transient ischemic attack (TIA), and cerebral infarction without residual deficits; I25.2 Old myocardial infarction; Z98.84 Bariatric surgery status; Z87.891 Personal history of nicotine dependence; Z88.8 Allergy status to other drugs, medicaments and biological substances; Z79.82 Long term (current) use of aspirin; Z79.01 Long term (current) use of anticoagulants; Z79.899 Other long term (current) drug therapy
CPT/HCPCS: 36415; 36416; 70450; 70496; 70498; 70551; 80048; 80053; 82550; 82553; 83735; 84484; 85025; 85610; 85730; 90471; 90732; 93005; 93306; 94640; 94760; G0009; J0360; J2405; J7620; Q0163; Q9967

== ENCOUNTER 2020-09-08 04:10 | Inpatient (IN) | payer OTHER ==
[2020-09-08] MEDS ORDERED: Acetaminophen 325 MG TAB PO PRN (06:00)
[2020-09-08] MEDS ORDERED: Ondansetron PF 4 MG/2 ML Vial IVP PRN (06:00)
[2020-09-08] MEDS ORDERED: Ondansetron ODT 4 MG TAB SL PRN (06:00)
[2020-09-08 06:04] LABS: SARS-CoV-2 NAA Rapid Test Not Detected (NotDetected)
[2020-09-08 06:22] VITALS: BMI 40.3
[2020-09-08 07:37] LABS: Anion Gap 16 mmol/L (10-20); BUN (Urea Nitrogen) 47 mg/dL (9.8-20.1); Calc. Creatinine Clearance 28 mL/min (70-130); Carbon Dioxide 18 mmol/L (22-29); Chloride 105 mmol/L (98-107); Glucose 115 mg/dL (70-105); Potassium 5.4 mmol/L (3.5-5.1); Sodium 134 mmol/L (136-145)
[2020-09-08] MEDS ORDERED: HumaLOG 300 UNITS/3 ML VIAL SC PRN (08:07)
[2020-09-08] MEDS ORDERED: Dextrose 50% Abboject 50 ML SYRINGE SLOW IVP PRN (08:07)
[2020-09-08] MEDS ORDERED: Dextrose 5% in Water 1,000 ML IV PRN (08:07)
[2020-09-08] MEDS ORDERED: hydrALAZINE 20 MG/ML VIAL SLOW IVP PRN (08:08)
[2020-09-08 08:27] LABS: #Lymphocytes 0.4 thou/uL (1.20-3.40); #Monocytes 0.1 thou/uL (0.11-0.59); #Neutrophils 10.3 thou/uL (1.40-6.50); %Eosinophils 0.2 % (0.0-10.0); %Lymphocytes 3.9 % (21.0-51.0); %Neutrophils 94.9 % (42.0-75.0); Hemoglobin 10.5 g/dL (12.0-16.0); Mean Corpuscular HGB CONC 32.7 g/dL (32.0-36.0); Mean Corpuscular Hemoglobin 31.1 pg (27.0-31.0); Mean Corpuscular Volume 95.2 fL (78.0-98.0); Mean Platelet Volume 7.7 fL (7.4-10.4); Platelet Count 349 thou/uL (130-400); RBC Distribution Width 12.5 % (11.5-14.5); Red Blood Cell (RBC) Count 3.37 mill/uL (4.20-5.40); White Blood Cell (WBC) Count 10.9 thou/uL (4.8-10.8)
[2020-09-08 08:53] LABS: Troponin I 0.019 ng/mL (< 0.028)
[2020-09-08 09:16] LABS: Actual Bicarbonate (HCO3a) 17.5 mEq/L (22-28); Analyzer IN Cardio ER; Base Excess (BEa) -8.5 mEq/L (-2.0 to +3.0); CO2 Tension 37.9 mmHg (35.0-45.0); Calcium, Ionized (arterial) 1.15 mmol/L (1.12-1.30); Carboxyhemoglobin (COHb) 0.3 gm% (0.0-3.0); Hemoglobin (Hb) 10.9 g/dL (12.0-16.0); Potassium - ABG Lab 5.21 mmol/L (3.70-5.30); pH, Arterial 7.28 (7.35-7.45)
[2020-09-08 09:19] LABS: ALV-art Gradient 125.305 mmHg (0-20); Puncture Site LRA
[2020-09-08] MEDS ORDERED: Furosemide 40 MG/4 ML VIAL ONE (09:49)
[2020-09-08] MEDS: Furosemide 40 MG/4 ML VIAL SLOW IVP SCH ×2 (09:53→20:14)
[2020-09-08] MEDS ORDERED: traMADol HCl 50 MG TAB PO PRN (16:43)
[2020-09-08] MEDS: Atorvastatin Calcium 40 MG TAB PO SCH (20:14)
[2020-09-08] MEDS: cloNIDine 0.1 MG TAB PO PRN (20:14)
[2020-09-08] MEDS: traMADol HCl 50 MG TAB PO PRN (20:45)
[2020-09-09 05:22] LABS: Albumin 2.7 g/dL (3.5-5.0); Anion Gap 17 mmol/L (10-20); BUN (Urea Nitrogen) 54 mg/dL (9.8-20.1); BUN/Creatinine Ratio 13.64; Calc. Creatinine Clearance 27 mL/min (70-130); Calcium 8.4 mg/dL (7.8-10.44); Carbon Dioxide 18 mmol/L (22-29); Chloride 105 mmol/L (98-107); Glucose 118 mg/dL (70-105); Phosphorus 5.8 mg/dL (2.3-4.7); Potassium 4.6 mmol/L (3.5-5.1); Sodium 135 mmol/L (136-145)
[2020-09-09 05:29] LABS: #Lymphocytes 0.6 thou/uL (1.20-3.40); #Monocytes 0.4 thou/uL (0.11-0.59); #Neutrophils 5.3 thou/uL (1.40-6.50); %Basophils 0.1 % (0.0-1.0); %Eosinophils 0.3 % (0.0-10.0); %Lymphocytes 9.1 % (21.0-51.0); %Monocytes 5.7 % (0.0-10.0); %Neutrophils 84.8 % (42.0-75.0); Hemoglobin 9.6 g/dL (12.0-16.0); Mean Corpuscular HGB CONC 32.1 g/dL (32.0-36.0); Mean Corpuscular Hemoglobin 29.6 pg (27.0-31.0); Mean Corpuscular Volume 92.3 fL (78.0-98.0); Mean Platelet Volume 7.4 fL (7.4-10.4); Platelet Count 376 thou/uL (130-400); RBC Distribution Width 12.5 % (11.5-14.5); Red Blood Cell (RBC) Count 3.23 mill/uL (4.20-5.40); White Blood Cell (WBC) Count 6.2 thou/uL (4.8-10.8)
[2020-09-09] MEDS: Ezetimibe 10 MG TAB PO SCH (08:30)
[2020-09-09] MEDS: Apixaban 5 MG TAB PO SCH (08:30)
[2020-09-09] MEDS: NIFEdipine XL 60 MG TAB PO SCH (08:30)
[2020-09-09] MEDS: Furosemide 40 MG/4 ML VIAL SLOW IVP SCH ×2 (08:31→20:36)
[2020-09-09] MEDS: Sodium Bicarbonate Tab 325 MG TAB PO SCH ×2 (09:15→20:36)
[2020-09-09] MEDS: traMADol HCl 50 MG TAB PO PRN (09:16)
[2020-09-09] MEDS: Calcitriol 0.25 MCG CAP PO SCH (09:16)
[2020-09-09] MEDS: Calcium Acetate 667 MG CAP PO SCH ×2 (12:06→16:54)
[2020-09-09] MEDS: hydrALAZINE 25 MG TAB PO SCH ×2 (16:54→20:36)
[2020-09-09] MEDS: Atorvastatin Calcium 40 MG TAB PO SCH (20:36)
[2020-09-10 05:14] LABS: Albumin 2.4 g/dL (3.5-5.0); Anion Gap 13 mmol/L (10-20); BUN (Urea Nitrogen) 59 mg/dL (9.8-20.1); BUN/Creatinine Ratio 14.71; Calc. Creatinine Clearance 26 mL/min (70-130); Calcium 7.8 mg/dL (7.8-10.44); Carbon Dioxide 23 mmol/L (22-29); Chloride 106 mmol/L (98-107); Glucose 86 mg/dL (70-105); Iron 30 ug/dL (50-170); Phosphorus 4.7 mg/dL (2.3-4.7); Sodium 138 mmol/L (136-145)
[2020-09-10 05:24] LABS: Iron 31 ug/dL (50-170); Iron Binding Capacity, Total 180 mcg/dL (265-497)
[2020-09-10] MEDS: traMADol HCl 50 MG TAB PO PRN (08:16)
[2020-09-10] MEDS: Calcium Acetate 667 MG CAP PO SCH ×3 (08:17→17:06)
[2020-09-10] MEDS: Apixaban 5 MG TAB PO SCH (08:17)
[2020-09-10] MEDS: Furosemide 40 MG/4 ML VIAL SLOW IVP SCH (08:17)
[2020-09-10] MEDS: Sodium Bicarbonate Tab 325 MG TAB PO SCH (08:17)
[2020-09-10] MEDS: Calcitriol 0.25 MCG CAP PO SCH (08:17)
[2020-09-10] MEDS: NIFEdipine XL 60 MG TAB PO SCH (08:17)
[2020-09-10] MEDS: Ezetimibe 10 MG TAB PO SCH (08:18)
[2020-09-10] MEDS: Carvedilol 6.25 MG TAB PO SCH ×2 (08:18→17:06)
[2020-09-10] MEDS: hydrALAZINE 25 MG TAB PO SCH ×4 (08:18→21:39)
[2020-09-10] MEDS ORDERED: Iron, Sodium Ferric Gluconate 250 MG in Sodium Chloride 0.9% 250 ML 250 ML IVPB SCH (20:00)
[2020-09-10] MEDS: cloNIDine 0.1 MG TAB PO PRN (21:39)
[2020-09-10] MEDS: Atorvastatin Calcium 40 MG TAB PO SCH (21:40)
[2020-09-11 05:11] LABS: Albumin 2.5 g/dL (3.5-5.0); Anion Gap 12 mmol/L (10-20); BUN (Urea Nitrogen) 56 mg/dL (9.8-20.1); BUN/Creatinine Ratio 15.22; Calc. Creatinine Clearance 28 mL/min (70-130); Calcium 7.8 mg/dL (7.8-10.44); Carbon Dioxide 25 mmol/L (22-29); Chloride 105 mmol/L (98-107); Glucose 95 mg/dL (70-105); Potassium 3.8 mmol/L (3.5-5.1); Sodium 138 mmol/L (136-145)
[2020-09-11] MEDS: Furosemide 40 MG TAB PO SCH ×2 (09:19→16:30)
[2020-09-11] MEDS: NIFEdipine XL 60 MG TAB PO SCH (09:19)
[2020-09-11] MEDS: Ezetimibe 10 MG TAB PO SCH (09:19)
[2020-09-11] MEDS: Calcitriol 0.25 MCG CAP PO SCH (09:19)
[2020-09-11] MEDS: Sodium Bicarbonate Tab 325 MG TAB PO SCH (09:19)
[2020-09-11] MEDS: Apixaban 5 MG TAB PO SCH ×2 (09:19→21:06)
[2020-09-11] MEDS: Calcium Acetate 667 MG CAP PO SCH ×3 (09:19→16:30)
[2020-09-11] MEDS: hydrALAZINE 25 MG TAB PO SCH ×3 (09:20→21:06)
[2020-09-11] MEDS: traMADol HCl 50 MG TAB PO PRN (09:20)
[2020-09-11] MEDS: Carvedilol 6.25 MG TAB PO SCH ×2 (09:23→16:30)
[2020-09-11] MEDS ORDERED: Iron Sucrose Complex 200 MG in Sodium Chloride 0.9% 100 ML IVPB SCH (20:00)
[2020-09-11] MEDS ORDERED: Iron, Sodium Ferric Gluconate 250 MG in Sodium Chloride 0.9% 250 ML 250 ML IVPB SCH (21:00)
[2020-09-11] MEDS: Atorvastatin Calcium 40 MG TAB PO SCH (21:05)
[2020-09-12 05:10] LABS: Albumin 2.4 g/dL (3.5-5.0); Anion Gap 11 mmol/L (10-20); BUN (Urea Nitrogen) 49 mg/dL (9.8-20.1); BUN/Creatinine Ratio 13.65; Calc. Creatinine Clearance 29 mL/min (70-130); Calcium 8.2 mg/dL (7.8-10.44); Carbon Dioxide 25 mmol/L (22-29); Chloride 104 mmol/L (98-107); Glucose 89 mg/dL (70-105); Phosphorus 3.6 mg/dL (2.3-4.7); Potassium 3.8 mmol/L (3.5-5.1); Sodium 136 mmol/L (136-145)
[2020-09-12] MEDS: Carvedilol 6.25 MG TAB PO SCH (09:12)
[2020-09-12] MEDS: Calcium Acetate 667 MG CAP PO SCH ×2 (09:12→12:05)
[2020-09-12] MEDS: NIFEdipine XL 60 MG TAB PO SCH (09:13)
[2020-09-12] MEDS: Calcitriol 0.25 MCG CAP PO SCH (09:13)
[2020-09-12] MEDS: Apixaban 5 MG TAB PO SCH (09:13)
[2020-09-12] MEDS: Ezetimibe 10 MG TAB PO SCH (09:13)
[2020-09-12] MEDS: Furosemide 40 MG TAB PO SCH ×2 (09:13→14:54)
[2020-09-12] MEDS: Sodium Bicarbonate Tab 325 MG TAB PO SCH (09:14)
[2020-09-12 14:52] VITALS: BP 146/65; TEMP 98
== END 2020-09-12 16:45 | DRG 291 ==
LOC: ERS 04:10 → ERHOLD 04:59 → 2NO 14:26
PROVIDERS: ADMIT Internal Medicine; ATTEND Emergency Medicine
PROC: 5A09357 Assistance with Respiratory Ventilation, Less than 24 Consecutive Hours, Continuous Positive Airway Pressure (ICD-10-PCS; principal; 2020-09-09)
DX: I13.0 Hypertensive heart and chronic kidney disease with heart failure and stage 1 through stage 4 chronic kidney disease, or unspecified chronic kidney disease (principal); J96.01 Acute respiratory failure with hypoxia; I50.23 Acute on chronic systolic (congestive) heart failure; N18.4 Chronic kidney disease, stage 4 (severe); N17.9 Acute kidney failure, unspecified; E87.2 Acidosis; N25.81 Secondary hyperparathyroidism of renal origin; I25.10 Atherosclerotic heart disease of native coronary artery without angina pectoris; E11.22 Type 2 diabetes mellitus with diabetic chronic kidney disease; G47.33 Obstructive sleep apnea (adult) (pediatric); D63.1 Anemia in chronic kidney disease; D50.9 Iron deficiency anemia, unspecified; E66.01 Morbid (severe) obesity due to excess calories; I48.0 Paroxysmal atrial fibrillation; E11.319 Type 2 diabetes mellitus with unspecified diabetic retinopathy without macular edema; E78.5 Hyperlipidemia, unspecified; Z20.822 Contact with and (suspected) exposure to COVID-19; E87.5 Hyperkalemia; Z98.84 Bariatric surgery status; Z86.73 Personal history of transient ischemic attack (TIA), and cerebral infarction without residual deficits; Z98.890 Other specified postprocedural states; Z79.01 Long term (current) use of anticoagulants; Z79.899 Other long term (current) drug therapy; Z87.891 Personal history of nicotine dependence; Z88.8 Allergy status to other drugs, medicaments and biological substances; Z68.38 Body mass index [BMI] 38.0-38.9, adult
CPT/HCPCS: 36415; 36416; 36600; 71046; 76770; 80069; 82570; 82728; 82805; 83540; 83550; 83970; 84145; 84156; 85025; 93306; 94640; 94660; J0360; J1940; J2916; J7050; J7620; U0002

== ENCOUNTER 2021-08-15 12:19 | Emergency (ER) | payer OTHER ==
[2021-08-15 12:50] LABS: #Basophils 0.1 thou/uL (0.0-0.2); #Eosinphils 0.3 thou/uL (0.0-0.7); #Lymphocytes 2.1 thou/uL (1.20-3.40); #Monocytes 0.5 thou/uL (0.11-0.59); #Neutrophils 3.4 thou/uL (1.40-6.50); %Basophils 1.1 % (0.0-1.0); %Eosinophils 5.4 % (0.0-10.0); %Lymphocytes 32.7 % (21.0-51.0); %Monocytes 7.3 % (0.0-10.0); %Neutrophils 53.5 % (42.0-75.0); Hemoglobin 10.5 g/dL (12.0-16.0); Mean Corpuscular HGB CONC 32.6 g/dL (32.0-36.0); Mean Corpuscular Hemoglobin 31.6 pg (27.0-31.0); Mean Corpuscular Volume 96.7 fL (78.0-98.0); Mean Platelet Volume 6.3 fL (7.4-10.4); Platelet Count 242 thou/uL (130-400); RBC Distribution Width 11.4 % (11.5-14.5); Red Blood Cell (RBC) Count 3.34 mill/uL (4.20-5.40); White Blood Cell (WBC) Count 6.3 thou/uL (4.8-10.8)
[2021-08-15 13:07] LABS: ALT (SGPT) 9 U/L (8-55); AST (SGOT) 13 U/L (5-34); Albumin 3.4 g/dL (3.5-5.0); Alkaline Phosphatase 66 U/L (40-110); Anion Gap 14 mmol/L (10-20); BUN (Urea Nitrogen) 51 mg/dL (9.8-20.1); Bilirubin, Total 0.2 mg/dL (0.2-1.2); Calc. Creatinine Clearance 0 mL/min (70-130); Calcium 8.3 mg/dL (7.8-10.44); Carbon Dioxide 24 mmol/L (22-29); Chloride 104 mmol/L (98-107); Globulin 3.2 g/dL (2.4-3.5); Glucose 78 mg/dL (70-105); Potassium 4.7 mmol/L (3.5-5.1); Protein, Total 6.6 g/dL (6.0-8.3); Sodium 137 mmol/L (136-145)
[2021-08-15] MEDS ORDERED: traMADol HCl 50 MG TAB ONE (15:15)
== END 2021-08-15 16:23 | disposition home or self-care (01) ==
LOC: ERS 12:19
DX: S20.212A Contusion of left front wall of thorax, initial encounter (principal); M25.562 Pain in left knee; E11.40 Type 2 diabetes mellitus with diabetic neuropathy, unspecified; E11.319 Type 2 diabetes mellitus with unspecified diabetic retinopathy without macular edema; I10 Essential (primary) hypertension; I25.2 Old myocardial infarction; E66.9 Obesity, unspecified; E78.5 Hyperlipidemia, unspecified; E78.00 Pure hypercholesterolemia, unspecified; Z79.01 Long term (current) use of anticoagulants; Z79.51 Long term (current) use of inhaled steroids; Z79.899 Other long term (current) drug therapy; Z86.73 Personal history of transient ischemic attack (TIA), and cerebral infarction without residual deficits; Z87.891 Personal history of nicotine dependence; W05.0XXA Fall from non-moving wheelchair, initial encounter
CPT/HCPCS: 36415; 70450; 71250; 72125; 74177; 80053; 85025

== ENCOUNTER 2021-09-11 02:18 | Emergency (ER) | payer OTHER ==
[2021-09-11] MEDS ORDERED: Proparacaine 0.5% Opth 15 ML BOT ONE (02:36)
[2021-09-11] MEDS ORDERED: Fluorescein Opthalmic Strip ONE (03:16)
[2021-09-11] MEDS ORDERED: Morphine 4 MG/ML VIAL ONE (03:17)
== END 2021-09-11 09:10 | disposition home or self-care (01) ==
LOC: ERS 02:18
DX: M54.50 Low back pain, unspecified (principal); M25.551 Pain in right hip; I10 Essential (primary) hypertension; E11.9 Type 2 diabetes mellitus without complications; E78.5 Hyperlipidemia, unspecified; E78.00 Pure hypercholesterolemia, unspecified; I25.2 Old myocardial infarction; G47.30 Sleep apnea, unspecified; E66.9 Obesity, unspecified; E11.40 Type 2 diabetes mellitus with diabetic neuropathy, unspecified; E11.319 Type 2 diabetes mellitus with unspecified diabetic retinopathy without macular edema; W18.30XA Fall on same level, unspecified, initial encounter; Z68.45 Body mass index [BMI] 70 or greater, adult; Z86.73 Personal history of transient ischemic attack (TIA), and cerebral infarction without residual deficits; Z87.891 Personal history of nicotine dependence
CPT/HCPCS: 72131; 72192; 96372; J2270

== ENCOUNTER 2022-04-29 17:53 | Emergency (ER) | payer OTHER ==
[2022-04-29 18:31] LABS: #Eosinphils 0.3 thou/uL (0.0-0.7); #Lymphocytes 1.3 thou/uL (1.20-3.40); #Monocytes 0.4 thou/uL (0.11-0.59); #Neutrophils 5.5 thou/uL (1.40-6.50); %Basophils 0.5 % (0.0-1.0); %Eosinophils 4.3 % (0.0-10.0); %Lymphocytes 16.8 % (21.0-51.0); %Monocytes 5.7 % (0.0-10.0); %Neutrophils 72.8 % (42.0-75.0); Hemoglobin 8.8 g/dL (12.0-16.0); Mean Corpuscular HGB CONC 33.1 g/dL (32.0-36.0); Mean Corpuscular Volume 93.5 fl (78.0-98.0); Mean Platelet Volume 7.1 fL (7.4-10.4); Platelet Count 286 10x3/uL (130-400); RBC Distribution Width 12.2 % (11.5-14.5); Red Blood Cell (RBC) Count 2.84 mill/uL (4.20-5.40); White Blood Cell (WBC) Count 7.5 10x3/uL (4.8-10.8)
[2022-04-29] MEDS ORDERED: Boostrix 0.5 ML (Tdap) VIAL (>/=7 yrs of age) ONE (18:43)
[2022-04-29] MEDS ORDERED: traMADol HCl 50 MG TAB ONE (18:43)
[2022-04-29 18:47] LABS: INR-International Normal Ratio 1.2
[2022-04-29 18:48] LABS: PTT 40.3 sec (22.9-36.1)
[2022-04-29 18:56] LABS: ALT (SGPT) 7 U/L (8-55); AST (SGOT) 18 U/L (5-34); Albumin 3.2 g/dL (3.5-5.0); Alkaline Phosphatase 77 U/L (40-110); Anion Gap 19 mmol/L (10-20); BUN (Urea Nitrogen) 64 mg/dL (9.8-20.1); Bilirubin, Total 0.4 mg/dL (0.2-1.2); Calc. Creatinine Clearance 0 mL/min (70-130); Carbon Dioxide 20 mmol/L (22-29); Chloride 104 mmol/L (98-107); Estimated GFR 6; Globulin 3.8 g/dL (2.4-3.5); Glucose 85 mg/dL (70-105); Potassium 4.5 mmol/L (3.5-5.1); Sodium 138 mmol/L (136-145)
[2022-04-29] MEDS ORDERED: Calcium Gluc 4.6 MEQ/10 ML (100 MG/ML) ONE (19:02)
== END 2022-04-29 22:02 | disposition home or self-care (01) ==
LOC: ERS 17:53
DX: S70.212A Abrasion, left hip, initial encounter (principal); I10 Essential (primary) hypertension; E78.5 Hyperlipidemia, unspecified; E11.40 Type 2 diabetes mellitus with diabetic neuropathy, unspecified; E11.22 Type 2 diabetes mellitus with diabetic chronic kidney disease; N18.4 Chronic kidney disease, stage 4 (severe); E11.319 Type 2 diabetes mellitus with unspecified diabetic retinopathy without macular edema; W01.0XXA Fall on same level from slipping, tripping and stumbling without subsequent striking against object, initial encounter; Y93.E1 Activity, personal bathing and showering; Y92.091 Bathroom in other non-institutional residence as the place of occurrence of the external cause; Z79.899 Other long term (current) drug therapy; Z79.01 Long term (current) use of anticoagulants; Z87.891 Personal history of nicotine dependence
CPT/HCPCS: 70450; 71045; 80053; 85025; 85610; 85730; 90471; 90715; 96374; J0610

== ENCOUNTER 2022-06-08 17:57 | Inpatient (IN) | payer OTHER ==
[2022-06-08 19:31] LABS: #Basophils 0.1 thou/uL (0.0-0.2); #Eosinphils 0.2 thou/uL (0.0-0.7); #Lymphocytes 1.2 thou/uL (1.20-3.40); #Monocytes 0.7 thou/uL (0.11-0.59); #Neutrophils 7.3 thou/uL (1.40-6.50); %Basophils 0.6 % (0.0-1.0); %Eosinophils 2.3 % (0.0-10.0); %Lymphocytes 12.3 % (21.0-51.0); %Monocytes 7.1 % (0.0-10.0); %Neutrophils 77.8 % (42.0-75.0); Hemoglobin 7.2 g/dL (12.0-16.0); Mean Corpuscular HGB CONC 32.9 g/dL (32.0-36.0); Mean Corpuscular Hemoglobin 31.5 pg (27.0-31.0); Mean Corpuscular Volume 95.6 fl (78.0-98.0); Platelet Count 254 10x3/uL (130-400); RBC Distribution Width 12.7 % (11.5-14.5); Red Blood Cell (RBC) Count 2.28 mill/uL (4.20-5.40); White Blood Cell (WBC) Count 9.3 10x3/uL (4.8-10.8)
[2022-06-08 19:50] LABS: ALT (SGPT) Less than 7 U/L (8-55); AST (SGOT) 12 U/L (5-34); Alkaline Phosphatase 60 U/L (40-110); Anion Gap 17 mmol/L (10-20); BUN (Urea Nitrogen) 91 mg/dL (9.8-20.1); Bilirubin, Total 0.4 mg/dL (0.2-1.2); Calc. Creatinine Clearance 0 mL/min (70-130); Carbon Dioxide 19 mmol/L (22-29); Chloride 105 mmol/L (98-107); Estimated GFR 4; Globulin 3.8 g/dL (2.4-3.5); Glucose 111 mg/dL (70-105); Potassium 3.9 mmol/L (3.5-5.1); Protein, Total 6.8 g/dL (6.0-8.3); Sodium 137 mmol/L (136-145)
[2022-06-08 19:55] LABS: Calcium 5.7 mg/dL (7.8-10.44)
[2022-06-08 20:49] LABS: Actual Bicarbonate (HCO3v) 17 mEq/L (22-28); Analyzer IN Cardio ER; Base Excess -8.2 mEq/L (-2.0 to +3.0); Chloride (VBG) 105 mmol/L (98-106); Potassium (VBG) 3.86 mmol/L (3.70-5.30); Sodium 138.3 mmol/L (133-146); pH (venous) 7.35 (7.32-7.43)
[2022-06-08 20:50] LABS: Calcium, Ionized (venous) 0.69 mmol/L (1.16-1.32)
[2022-06-08 21:41] LABS: Troponin I 0.023 ng/mL (< 0.028)
[2022-06-08] MEDS ORDERED: CALCIUM GLUCONATE IVPB SCH (22:00)
[2022-06-08] MEDS ORDERED: DEXTROSE 5% IVPB SCH (22:00)
[2022-06-08] MEDS ORDERED: WATER IVPB SCH (22:00)
[2022-06-08 22:10] LABS: INR-International Normal Ratio 1.6; Prothrombin Time 19.4 sec (12.0-14.7)
[2022-06-08 22:11] LABS: PTT 38.7 sec (22.9-36.1)
[2022-06-08] MEDS ORDERED: Ipratropium/Albuterol 3 ML NEB NEB PRN (22:47)
[2022-06-09] MEDS ORDERED: Ondansetron PF 4 MG/2 ML Vial IVP PRN (00:28)
[2022-06-09] MEDS ORDERED: Acetaminophen 325 MG TAB PO PRN (00:28)
[2022-06-09] MEDS ORDERED: Dextrose 50% Abboject 50 ML SYRINGE SLOW IVP PRN (00:59)
[2022-06-09] MEDS ORDERED: Dextrose 5% in Water 1,000 ML IV PRN (00:59)
[2022-06-09] MEDS ORDERED: HumaLOG 300 UNITS/3 ML VIAL SC PRN ×2 (00:59)
[2022-06-09 02:16] LABS: SARS-CoV-2 NAA Rapid Test Not Detected (NotDetected)
[2022-06-09 02:39] LABS: #Eosinphils 0.2 thou/uL (0.0-0.7); #Lymphocytes 0.9 thou/uL (1.20-3.40); #Monocytes 0.8 thou/uL (0.11-0.59); #Neutrophils 8.2 thou/uL (1.40-6.50); %Basophils 0.3 % (0.0-1.0); %Eosinophils 1.8 % (0.0-10.0); %Lymphocytes 8.9 % (21.0-51.0); %Monocytes 7.4 % (0.0-10.0); %Neutrophils 81.5 % (42.0-75.0); Hemoglobin 8.6 g/dL (12.0-16.0); Mean Corpuscular HGB CONC 33.1 g/dL (32.0-36.0); Mean Corpuscular Hemoglobin 31.1 pg (27.0-31.0); Mean Corpuscular Volume 94.2 fl (78.0-98.0); Platelet Count 241 10x3/uL (130-400); Red Blood Cell (RBC) Count 2.75 mill/uL (4.20-5.40); White Blood Cell (WBC) Count 10.1 10x3/uL (4.8-10.8)
[2022-06-09 03:01] LABS: Magnesium 1.8 mg/dL (1.6-2.6)
[2022-06-09 03:15] LABS: ALT (SGPT) 7 U/L (8-55); AST (SGOT) 14 U/L (5-34); Alkaline Phosphatase 62 U/L (40-110); Anion Gap 22 mmol/L (10-20); BUN (Urea Nitrogen) 90 mg/dL (9.8-20.1); Bilirubin, Total 0.6 mg/dL (0.2-1.2); Calc. Creatinine Clearance 0 mL/min (70-130); Calcium 6.7 mg/dL (7.8-10.44); Carbon Dioxide 15 mmol/L (22-29); Chloride 104 mmol/L (98-107); Estimated GFR 4; Globulin 3.9 g/dL (2.4-3.5); Glucose 108 mg/dL (70-105); Potassium 3.8 mmol/L (3.5-5.1); Protein, Total 6.9 g/dL (6.0-8.3); Sodium 137 mmol/L (136-145)
== END 2022-06-09 04:12 | disposition short-term general hospital, planned readmission (82) | DRG 812 ==
LOC: ERS 17:57 → ERHOLD 21:00
PROVIDERS: ADMIT Student in an Organized Health Care Education/Training Program; ATTEND Student in an Organized Health Care Education/Training Program
PROC: 30233N1 Transfusion of Nonautologous Red Blood Cells into Peripheral Vein, Percutaneous Approach (ICD-10-PCS; principal; 2022-06-08)
DX: D64.9 Anemia, unspecified (principal); N17.9 Acute kidney failure, unspecified; E87.20 Acidosis, unspecified; I50.22 Chronic systolic (congestive) heart failure; I13.0 Hypertensive heart and chronic kidney disease with heart failure and stage 1 through stage 4 chronic kidney disease, or unspecified chronic kidney disease; N18.4 Chronic kidney disease, stage 4 (severe); I25.10 Atherosclerotic heart disease of native coronary artery without angina pectoris; E78.5 Hyperlipidemia, unspecified; E11.22 Type 2 diabetes mellitus with diabetic chronic kidney disease; E83.51 Hypocalcemia; I48.0 Paroxysmal atrial fibrillation; E66.01 Morbid (severe) obesity due to excess calories; E11.319 Type 2 diabetes mellitus with unspecified diabetic retinopathy without macular edema; Z88.8 Allergy status to other drugs, medicaments and biological substances; Z79.01 Long term (current) use of anticoagulants; Z98.84 Bariatric surgery status; Z86.73 Personal history of transient ischemic attack (TIA), and cerebral infarction without residual deficits; Z87.891 Personal history of nicotine dependence
CPT/HCPCS: 36415; 36430; 71045; 80053; 82274; 82306; 82805; 83735; 83880; 83970; 84145; 84484; 85025; 85610; 85730; 86850; 86900; 86901; 93005; 94640; 96365; 96366; J0610; J7070; J7620; P9016; U0002

== ENCOUNTER 2022-09-26 04:07 | Observation (INO) | payer OTHER ==
[2022-09-26 04:52] LABS: #Basophils 0.1 thou/uL (0.0-0.2); #Eosinphils 0.2 thou/uL (0.0-0.7); #Monocytes 0.5 thou/uL (0.11-0.59); #Neutrophils 3.4 thou/uL (1.40-6.50); %Basophils 0.8 % (0.0-1.0); %Eosinophils 3.6 % (0.0-10.0); %Lymphocytes 32.8 % (21.0-51.0); %Monocytes 7.3 % (0.0-10.0); %Neutrophils 55.3 % (42.0-75.0); Hemoglobin 12.6 g/dL (12.0-16.0); Mean Corpuscular HGB CONC 33.1 g/dL (32.0-36.0); Mean Corpuscular Hemoglobin 33.3 pg (27.0-31.0); Mean Corpuscular Volume 100.8 fl (78.0-98.0); Platelet Count 212 10x3/uL (130-400); Red Blood Cell (RBC) Count 3.78 mill/uL (4.20-5.40); White Blood Cell (WBC) Count 6.1 10x3/uL (4.8-10.8)
[2022-09-26 05:17] LABS: ALT (SGPT) 11 U/L (8-55); AST (SGOT) 18 U/L (5-34); Albumin 3.8 g/dL (3.5-5.0); Alkaline Phosphatase 62 U/L (40-110); Anion Gap 15 mmol/L (10-20); BUN (Urea Nitrogen) 43 mg/dL (9.8-20.1); Bilirubin, Total 0.4 mg/dL (0.2-1.2); Calc. Creatinine Clearance 0 mL/min (70-130); Calcium 9.2 mg/dL (7.8-10.44); Carbon Dioxide 29 mmol/L (22-29); Chloride 98 mmol/L (98-107); Estimated GFR 9; Globulin 3.5 g/dL (2.4-3.5); Glucose 78 mg/dL (70-105); Potassium 4.2 mmol/L (3.5-5.1); Protein, Total 7.3 g/dL (6.0-8.3); Sodium 138 mmol/L (136-145)
[2022-09-26] MEDS ORDERED: Ondansetron ODT 4 MG TAB PO PRN ×2 (06:30→09:38)
[2022-09-26] MEDS ORDERED: Ondansetron PF 4 MG/2 ML Vial IVP PRN (06:30)
[2022-09-26 09:25] VITALS: BMI 33.5
[2022-09-26] MEDS ORDERED: traMADol HCl 50 MG TAB PO PRN (09:38)
[2022-09-26] MEDS ORDERED: diphenhydrAMINE 25 MG CAP PO PRN (09:38)
[2022-09-26] MEDS: Sevelamer Carbonate 800 MG TAB PO SCH ×2 (11:26→17:38)
[2022-09-26] MEDS: Ipratropium/Albuterol 3 ML NEB NEB SCH ×2 (12:52→18:24)
[2022-09-26] MEDS: Calcium Carbonate 500 MG TAB PO SCH (17:38)
[2022-09-26] MEDS: Mometasone 100 MCG/Formoterol 5 MCG 120 PUFF INHALER INH SCH (18:25)
[2022-09-26] MEDS: buPROPion HCl 100 MG TAB PO SCH (20:47)
[2022-09-26] MEDS: Senokot S 8.6-50 MG TAB PO SCH (20:47)
[2022-09-26] MEDS: Sacubitril 24MG/Valsartan 26 MG TAB PO SCH (20:48)
[2022-09-26] MEDS: Furosemide 40 MG TAB PO SCH (20:48)
[2022-09-26] MEDS: Carvedilol 25 MG TAB PO SCH (20:49)
[2022-09-26] MEDS ORDERED: Atorvastatin Calcium 20 MG TAB PO SCH (21:00)
[2022-09-26] MEDS ORDERED: Non-Formulary Item 1 EACH (Budesonide-Formoterol [Symbicort 80-4.5] 80 MG/4.5 MG Aer) INH SCH (21:00)
[2022-09-26] MEDS ORDERED: Non-Formulary Item 1 EACH (Carvedilol [Coreg] 12.5 MG Tab) PO SCH (21:00)
[2022-09-26] MEDS ORDERED: Gabapentin 100 MG CAP PO SCH (21:00)
[2022-09-26] MEDS ORDERED: Sacubitril 24MG/Valsartan 26 MG TAB PO SCH (21:00)
[2022-09-27] MEDS: Ipratropium/Albuterol 3 ML NEB NEB SCH ×3 (00:28→14:30)
[2022-09-27] MEDS: Carvedilol 25 MG TAB PO SCH (05:22)
[2022-09-27] MEDS ORDERED: Heparin 10,000 UNITS/ 10 ML VIAL ONE (06:37)
[2022-09-27] MEDS ORDERED: Bupivacaine/Epinephrine 0.25% 30 ML VIAL ONE (06:37)
[2022-09-27] MEDS ORDERED: Lidocaine 2% PF 5 ML VIAL ONE (07:02)
[2022-09-27] MEDS ORDERED: fentaNYL 50 mcg/mL 1 mL Vial ONE ×3 (07:13→08:50)
[2022-09-27] MEDS ORDERED: Propofol 500 MG/50 ML VIAL ONE (07:13)
[2022-09-27] MEDS ORDERED: PROPOFOL 200 MG/20 ML VIAL ONE (07:40)
[2022-09-27] MEDS ORDERED: Lidocaine 1% PF 5 ML VIAL ONE (07:40)
[2022-09-27] MEDS: Mometasone 100 MCG/Formoterol 5 MCG 120 PUFF INHALER INH SCH (07:41)
[2022-09-27] MEDS ORDERED: Ondansetron HCl/PF 4 MG/2 ML Vial IVP PRN (08:35)
[2022-09-27] MEDS ORDERED: Promethazine HCl 25 MG/ML VIAL IM PRN (08:35)
[2022-09-27] MEDS ORDERED: Folic Acid/Vit B Comp W-C PO SCH (09:00)
[2022-09-27] MEDS ORDERED: Cetirizine HCl 10 MG TAB PO SCH (09:00)
[2022-09-27] MEDS ORDERED: Non-Formulary Item 1 EACH (Atorvastatin Calcium [Atorvastatin Calcium] 80 MG Tablet) PO SCH (09:00)
[2022-09-27] MEDS ORDERED: hydrALAZINE 10 MG TAB PO SCH (09:00)
[2022-09-27] MEDS ORDERED: Loratadine 10 MG TAB PO SCH (09:00)
[2022-09-27] MEDS ORDERED: Apixaban 5 MG TAB PO SCH (09:00)
[2022-09-27] MEDS ORDERED: Apixaban 2.5 MG TAB PO SCH ×2 (09:00→21:00)
[2022-09-27] MEDS: Sacubitril 24MG/Valsartan 26 MG TAB PO SCH (09:17)
[2022-09-27] MEDS: Senokot S 8.6-50 MG TAB PO SCH (09:19)
[2022-09-27] MEDS: Furosemide 40 MG TAB PO SCH (09:19)
[2022-09-27] MEDS: Calcium Carbonate 500 MG TAB PO SCH (09:19)
[2022-09-27] MEDS: Sevelamer Carbonate 800 MG TAB PO SCH ×2 (09:19→11:46)
[2022-09-27] MEDS: buPROPion HCl 100 MG TAB PO SCH (09:20)
[2022-09-27 09:22] VITALS: BP 162/88; TEMP 98
[2022-09-27 09:53] LABS: #Basophils 0.1 thou/uL (0.0-0.2); #Eosinphils 0.3 thou/uL (0.0-0.7); #Monocytes 0.4 thou/uL (0.11-0.59); #Neutrophils 3.1 thou/uL (1.40-6.50); %Basophils 0.9 % (0.0-1.0); %Eosinophils 4.7 % (0.0-10.0); %Monocytes 6.8 % (0.0-10.0); %Neutrophils 59.4 % (42.0-75.0); Mean Corpuscular HGB CONC 31.9 g/dL (32.0-36.0); Mean Corpuscular Volume 103.3 fl (78.0-98.0); Mean Platelet Volume 9.2 fL (7.4-10.4); Platelet Count 199 10x3/uL (130-400); RBC Distribution Width 13.9 % (11.5-14.5); Red Blood Cell (RBC) Count 3.64 mill/uL (4.20-5.40); White Blood Cell (WBC) Count 5.3 10x3/uL (4.8-10.8)
[2022-09-27 10:20] LABS: ALT (SGPT) 9 U/L (8-55); AST (SGOT) 15 U/L (5-34); Albumin 3.3 g/dL (3.5-5.0); Alkaline Phosphatase 55 U/L (40-110); Anion Gap 16 mmol/L (10-20); BUN (Urea Nitrogen) 49 mg/dL (9.8-20.1); Bilirubin, Total 0.3 mg/dL (0.2-1.2); Calc. Creatinine Clearance 17 mL/min (70-130); Calcium 8.6 mg/dL (7.8-10.44); Carbon Dioxide 23 mmol/L (22-29); Chloride 104 mmol/L (98-107); Estimated GFR 8; Globulin 3.1 g/dL (2.4-3.5); Glucose 86 mg/dL (70-105); Potassium 4.6 mmol/L (3.5-5.1); Protein, Total 6.4 g/dL (6.0-8.3); Sodium 138 mmol/L (136-145)
[2022-09-27 12:14] LABS: HBSAB Concentration Less than 8.00 mIU/mL; HBSAg Index 0.37 S/CO (0-0.99); Hep B Core Total Ab Non-Reactive (NonReactive); Hep B Core Total Index 0.09 S/CO (0-0.79); Hep B Surf AB Non-Reactive (NonReactive); Hep B Surf Ag Non-Reactive S/CO (NonReactive); Hep C IgG Ab Non-Reactive S/CO (NonReactive); Hep C Index 0.16 S/CO (0-0.79)
== END 2022-09-27 17:35 ==
LOC: ERS 04:07 → T4-B 06:41
PROVIDERS: ADMIT Internal Medicine; ATTEND Internal Medicine
PROC: 05HN33Z Insertion of Infusion Device into Left Internal Jugular Vein, Percutaneous Approach (ICD-10-PCS; principal; 2022-09-26)
DX: T82.49XA Other complication of vascular dialysis catheter, initial encounter (principal); I12.0 Hypertensive chronic kidney disease with stage 5 chronic kidney disease or end stage renal disease; N18.6 End stage renal disease; I25.2 Old myocardial infarction; E78.5 Hyperlipidemia, unspecified; F41.9 Anxiety disorder, unspecified; F32.A Depression, unspecified; E11.40 Type 2 diabetes mellitus with diabetic neuropathy, unspecified; E11.319 Type 2 diabetes mellitus with unspecified diabetic retinopathy without macular edema; Z88.6 Allergy status to analgesic agent; Z88.8 Allergy status to other drugs, medicaments and biological substances; Z88.3 Allergy status to other anti-infective agents; Z99.2 Dependence on renal dialysis; Z79.899 Other long term (current) drug therapy
CPT/HCPCS: 36415; 36416; 71045; 80053; 85025; 86704; 90935; 94640; C1752; G0257; G0378; J1644; J2001; J2704; J3010; J7620

== ENCOUNTER 2022-11-13 20:23 | Inpatient (IN) | payer OTHER, SELFPAY ==
[2022-11-13] MEDS ORDERED: fentaNYL 50 mcg/mL 1 mL Vial ONE (20:55)
[2022-11-13 21:32] LABS: ALT (SGPT) 11 U/L (8-55); AST (SGOT) 31 U/L (5-34); Albumin 3.6 g/dL (3.5-5.0); Alkaline Phosphatase 58 U/L (40-110); Anion Gap 12 mmol/L (10-20); BUN (Urea Nitrogen) 19 mg/dL (9.8-20.1); Bilirubin, Total 0.3 mg/dL (0.2-1.2); Calc. Creatinine Clearance 0 mL/min (70-130); Calcium 9.1 mg/dL (7.8-10.44); Carbon Dioxide 32 mmol/L (22-29); Chloride 99 mmol/L (98-107); Estimated GFR 14; Globulin 3.3 g/dL (2.4-3.5); Glucose 98 mg/dL (70-105); Lipase 14 U/L (8-78); Potassium 4.3 mmol/L (3.5-5.1); Protein, Total 6.9 g/dL (6.0-8.3); Sodium 139 mmol/L (136-145)
[2022-11-13 21:33] LABS: #Eosinphils 0.1 thou/uL (0.0-0.7); #Monocytes 0.6 thou/uL (0.11-0.59); #Neutrophils 3.5 thou/uL (1.40-6.50); %Basophils 0.7 % (0.0-1.0); %Eosinophils 2.3 % (0.0-10.0); %Lymphocytes 24.3 % (21.0-51.0); %Monocytes 11.2 % (0.0-10.0); %Neutrophils 61.3 % (42.0-75.0); Hemoglobin 9.9 g/dL (12.0-16.0); Mean Corpuscular HGB CONC 32.6 g/dL (32.0-36.0); Mean Corpuscular Hemoglobin 34.1 pg (27.0-31.0); Mean Corpuscular Volume 104.8 fl (78.0-98.0); Platelet Count 149 10x3/uL (130-400); RBC Distribution Width 13.2 % (11.5-14.5); White Blood Cell (WBC) Count 5.6 10x3/uL (4.8-10.8)
[2022-11-13 22:29] LABS: CKMB 3.1 ng/mL (0-6.6)
[2022-11-14 00:09] LABS: Troponin I 0.058 ng/mL (< 0.028)
[2022-11-14] MEDS ORDERED: Nystatin Powder 15 GM BOT TOP PRN (00:24)
[2022-11-14] MEDS ORDERED: Sacubitril 24MG/Valsartan 26 MG TAB PO SCH (00:30)
[2022-11-14] MEDS ORDERED: diphenhydrAMINE 25 MG CAP PO PRN (00:30)
[2022-11-14] MEDS: Nitroglycerin 0.4 MG TAB (25 Tab Bottle) SL PRN ×2 (01:32→01:38)
[2022-11-14] MEDS: traMADol HCl 50 MG TAB PO PRN ×2 (01:55→14:54)
[2022-11-14 02:38] LABS: #Basophils 0.1 thou/uL (0.0-0.2); #Eosinphils 0.2 thou/uL (0.0-0.7); #Monocytes 0.5 thou/uL (0.11-0.59); #Neutrophils 2.6 thou/uL (1.40-6.50); %Eosinophils 3.6 % (0.0-10.0); %Lymphocytes 32.1 % (21.0-51.0); %Monocytes 10.5 % (0.0-10.0); %Neutrophils 52.4 % (42.0-75.0); Hemoglobin 10.6 g/dL (12.0-16.0); Mean Corpuscular HGB CONC 32.7 g/dL (32.0-36.0); Mean Corpuscular Hemoglobin 34.1 pg (27.0-31.0); Mean Corpuscular Volume 104.2 fl (78.0-98.0); Mean Platelet Volume 9.1 fL (7.4-10.4); Platelet Count 157 10x3/uL (130-400); RBC Distribution Width 13.2 % (11.5-14.5); Red Blood Cell (RBC) Count 3.11 mill/uL (4.20-5.40)
[2022-11-14 03:18] LABS: Troponin I 0.053 ng/mL (< 0.028)
[2022-11-14 03:29] LABS: Anion Gap 13 mmol/L (10-20); BUN (Urea Nitrogen) 19 mg/dL (9.8-20.1); Calc. Creatinine Clearance 0 mL/min (70-130); Calcium 9.3 mg/dL (7.8-10.44); Carbon Dioxide 30 mmol/L (22-29); Chloride 100 mmol/L (98-107); Estimated GFR 12; Glucose 75 mg/dL (70-105); Potassium 3.5 mmol/L (3.5-5.1); Sodium 139 mmol/L (136-145)
[2022-11-14 04:30] VITALS: BMI 36.3
[2022-11-14] MEDS ORDERED: Dextrose 5%-Lactated Ringers 1,000 ML IV SCH (06:30)
[2022-11-14 06:37] LABS: Magnesium 1.9 mg/dL (1.6-2.6); Phosphorus 3.5 mg/dL (2.3-4.7)
[2022-11-14] MEDS: Mometasone 200 MCG/Formoterol 5 MCG 120 PUFF INHALER INH SCH ×2 (07:00→19:37)
[2022-11-14] MEDS: Ipratropium/Albuterol 3 ML NEB NEB SCH ×3 (07:10→19:27)
[2022-11-14] MEDS: Aspirin 81 mg Enteric Coated Tablet PO SCH (09:27)
[2022-11-14] MEDS: buPROPion HCl 100 MG TAB PO SCH ×2 (09:27→20:44)
[2022-11-14] MEDS: Senokot S 8.6-50 MG TAB PO SCH ×2 (09:27→20:44)
[2022-11-14] MEDS: Folic Acid/Vit B Comp W-C PO SCH (09:27)
[2022-11-14] MEDS: Furosemide 40 MG TAB PO SCH ×2 (09:28→20:45)
[2022-11-14] MEDS: hydrALAZINE 10 MG TAB PO SCH (09:28)
[2022-11-14] MEDS: Calcium Carbonate 500 MG TAB PO SCH ×2 (09:28→17:04)
[2022-11-14] MEDS: Loratadine 10 MG TAB PO SCH (09:28)
[2022-11-14] MEDS: Sevelamer Carbonate 800 MG TAB PO SCH ×3 (09:28→17:04)
[2022-11-14] MEDS: Atorvastatin Calcium 40 MG TAB PO SCH (20:44)
[2022-11-14] MEDS: Gabapentin 100 MG CAP PO SCH (20:44)
[2022-11-15] MEDS: Ipratropium/Albuterol 3 ML NEB NEB SCH ×4 (00:40→19:05)
[2022-11-15 04:58] LABS: #Eosinphils 0.2 thou/uL (0.0-0.7); #Monocytes 0.6 thou/uL (0.11-0.59); #Neutrophils 3.2 thou/uL (1.40-6.50); %Basophils 0.7 % (0.0-1.0); %Lymphocytes 29.6 % (21.0-51.0); %Monocytes 10.2 % (0.0-10.0); %Neutrophils 55.3 % (42.0-75.0); Hemoglobin 10.3 g/dL (12.0-16.0); Mean Corpuscular HGB CONC 32.5 g/dL (32.0-36.0); Mean Corpuscular Volume 104.6 fl (78.0-98.0); Mean Platelet Volume 9.2 fL (7.4-10.4); Platelet Count 160 10x3/uL (130-400); RBC Distribution Width 13.3 % (11.5-14.5); Red Blood Cell (RBC) Count 3.03 mill/uL (4.20-5.40); White Blood Cell (WBC) Count 5.8 10x3/uL (4.8-10.8)
[2022-11-15 05:23] LABS: Phosphorus 3.9 mg/dL (2.3-4.7)
[2022-11-15 06:57] LABS: Anion Gap 13 mmol/L (10-20); BUN (Urea Nitrogen) 33 mg/dL (9.8-20.1); Calc. Creatinine Clearance 16 mL/min (70-130); Calcium 8.5 mg/dL (7.8-10.44); Carbon Dioxide 29 mmol/L (22-29); Chloride 99 mmol/L (98-107); Estimated GFR 8; Glucose 75 mg/dL (70-105); Magnesium 1.9 mg/dL (1.6-2.6); Potassium 4.1 mmol/L (3.5-5.1); Sodium 137 mmol/L (136-145)
[2022-11-15] MEDS: Mometasone 200 MCG/Formoterol 5 MCG 120 PUFF INHALER INH SCH ×2 (08:25→19:05)
[2022-11-15] MEDS ORDERED: Heparin 10,000 UNITS/ 10 ML VIAL ONE (08:47)
[2022-11-15] MEDS ORDERED: Apixaban 5 MG TAB PO SCH (09:00)
[2022-11-15] MEDS ORDERED: Regadenoson 0.4 MG/5 ML SYRINGE ONE (11:34)
[2022-11-15] MEDS: Sevelamer Carbonate 800 MG TAB PO SCH ×2 (17:23→18:07)
[2022-11-15] MEDS: Calcium Carbonate 500 MG TAB PO SCH ×2 (17:23→18:07)
[2022-11-15] MEDS: buPROPion HCl 100 MG TAB PO SCH ×2 (17:24→20:45)
[2022-11-15] MEDS: Senokot S 8.6-50 MG TAB PO SCH ×3 (17:24→20:45)
[2022-11-15] MEDS: Furosemide 40 MG TAB PO SCH ×2 (17:24→20:46)
[2022-11-15] MEDS: Aspirin 81 mg Enteric Coated Tablet PO SCH (18:03)
[2022-11-15] MEDS: hydrALAZINE 10 MG TAB PO SCH (18:04)
[2022-11-15] MEDS: Folic Acid/Vit B Comp W-C PO SCH (18:04)
[2022-11-15] MEDS: Carvedilol 25 MG TAB PO SCH (18:09)
[2022-11-15] MEDS: Apixaban 2.5 MG TAB PO SCH (19:51)
[2022-11-15] MEDS: Loratadine 10 MG TAB PO SCH (19:52)
[2022-11-15] MEDS: Sacubitril 24MG/Valsartan 26 MG TAB PO SCH (20:46)
[2022-11-15] MEDS: Atorvastatin Calcium 40 MG TAB PO SCH (20:46)
[2022-11-15] MEDS: Gabapentin 100 MG CAP PO SCH (20:46)
[2022-11-16] MEDS: Ipratropium/Albuterol 3 ML NEB NEB SCH ×3 (00:50→13:43)
[2022-11-16 04:31] LABS: #Eosinphils 0.3 thou/uL (0.0-0.7); #Monocytes 0.6 thou/uL (0.11-0.59); #Neutrophils 4.2 thou/uL (1.40-6.50); %Basophils 0.6 % (0.0-1.0); %Eosinophils 3.7 % (0.0-10.0); %Lymphocytes 25.1 % (21.0-51.0); %Monocytes 9.3 % (0.0-10.0); Hemoglobin 10.9 g/dL (12.0-16.0); Mean Corpuscular HGB CONC 32.9 g/dL (32.0-36.0); Mean Corpuscular Hemoglobin 34.4 pg (27.0-31.0); Mean Corpuscular Volume 104.4 fl (78.0-98.0); Mean Platelet Volume 9.2 fL (7.4-10.4); Platelet Count 158 10x3/uL (130-400); RBC Distribution Width 13.2 % (11.5-14.5); Red Blood Cell (RBC) Count 3.17 mill/uL (4.20-5.40); White Blood Cell (WBC) Count 6.8 10x3/uL (4.8-10.8)
[2022-11-16 05:02] LABS: Anion Gap 13 mmol/L (10-20); BUN (Urea Nitrogen) 18 mg/dL (9.8-20.1); Calc. Creatinine Clearance 23 mL/min (70-130); Calcium 8.6 mg/dL (7.8-10.44); Carbon Dioxide 28 mmol/L (22-29); Chloride 102 mmol/L (98-107); Estimated GFR 12; Glucose 90 mg/dL (70-105); Magnesium 2.1 mg/dL (1.6-2.6); Potassium 3.9 mmol/L (3.5-5.1); Sodium 139 mmol/L (136-145)
[2022-11-16 05:09] LABS: Phosphorus 3.1 mg/dL (2.3-4.7)
[2022-11-16] MEDS ORDERED: Diclofenac 1% 100 GM GEL TP SCH ×2 (06:45→13:00)
[2022-11-16] MEDS: Mometasone 200 MCG/Formoterol 5 MCG 120 PUFF INHALER INH SCH (07:20)
[2022-11-16] MEDS: Carvedilol 25 MG TAB PO SCH (09:13)
[2022-11-16] MEDS: Folic Acid/Vit B Comp W-C PO SCH (09:13)
[2022-11-16] MEDS: Sacubitril 24MG/Valsartan 26 MG TAB PO SCH (09:13)
[2022-11-16] MEDS: Apixaban 2.5 MG TAB PO SCH (09:13)
[2022-11-16] MEDS: Aspirin 81 mg Enteric Coated Tablet PO SCH (09:13)
[2022-11-16] MEDS: Sevelamer Carbonate 800 MG TAB PO SCH ×2 (09:13→13:32)
[2022-11-16] MEDS: Calcium Carbonate 500 MG TAB PO SCH (09:13)
[2022-11-16] MEDS: buPROPion HCl 100 MG TAB PO SCH (09:13)
[2022-11-16] MEDS: Furosemide 40 MG TAB PO SCH (09:13)
[2022-11-16] MEDS: Senokot S 8.6-50 MG TAB PO SCH (09:14)
[2022-11-16] MEDS: Loratadine 10 MG TAB PO SCH (09:15)
[2022-11-16] MEDS: hydrALAZINE 10 MG TAB PO SCH (10:34)
[2022-11-16 11:52] VITALS: TEMP 98.2
[2022-11-16 12:28] VITALS: BP 122/66
[2022-11-20] MEDS ORDERED: Ergocalciferol 1.25 MG(50,000 UNITS) CAP PO SCH (09:00)
== END 2022-11-16 13:45 | DRG 302 ==
LOC: ERS 20:23 → OBSVTOIN 23:13 → 2SE 23:13
PROVIDERS: ADMIT Family Medicine; ATTEND Family Medicine
PROC: 5A1D70Z Performance of Urinary Filtration, Intermittent, Less than 6 Hours Per Day (ICD-10-PCS; principal; 2022-11-15)
DX: I25.118 Atherosclerotic heart disease of native coronary artery with other forms of angina pectoris (principal); N18.6 End stage renal disease; N25.81 Secondary hyperparathyroidism of renal origin; I69.354 Hemiplegia and hemiparesis following cerebral infarction affecting left non-dominant side; I13.2 Hypertensive heart and chronic kidney disease with heart failure and with stage 5 chronic kidney disease, or end stage renal disease; I50.42 Chronic combined systolic (congestive) and diastolic (congestive) heart failure; R53.81 Other malaise; E78.5 Hyperlipidemia, unspecified; E11.319 Type 2 diabetes mellitus with unspecified diabetic retinopathy without macular edema; H40.9 Unspecified glaucoma; E11.22 Type 2 diabetes mellitus with diabetic chronic kidney disease; D63.1 Anemia in chronic kidney disease; I25.2 Old myocardial infarction; Z99.2 Dependence on renal dialysis; Z88.8 Allergy status to other drugs, medicaments and biological substances; Z79.01 Long term (current) use of anticoagulants; Z79.899 Other long term (current) drug therapy; Z79.82 Long term (current) use of aspirin; Z98.84 Bariatric surgery status; Z87.891 Personal history of nicotine dependence; E11.42 Type 2 diabetes mellitus with diabetic polyneuropathy; I49.3 Ventricular premature depolarization; I42.9 Cardiomyopathy, unspecified
CPT/HCPCS: 36415; 36416; 71045; 78452; 80048; 80053; 82553; 83690; 83735; 84100; 84443; 84484; 85025; 90935; 93005; 93017; 94640; 94760; 96374; A9500; G0257; G0378; J1644; J2785; J3010; J7620

== ENCOUNTER 2023-01-17 09:37 | Emergency (ER) | payer OTHER ==
[2023-01-17 10:04] LABS: #Basophils 0.1 thou/uL (0.0-0.2); #Eosinphils 0.2 thou/uL (0.0-0.7); #Monocytes 0.4 thou/uL (0.11-0.59); #Neutrophils 5.6 thou/uL (1.40-6.50); %Basophils 0.7 % (0.0-1.0); %Eosinophils 2.6 % (0.0-10.0); %Lymphocytes 14.9 % (21.0-51.0); %Monocytes 5.6 % (0.0-10.0); %Neutrophils 75.9 % (42.0-75.0); Hematocrit 29.7 % (36.0-47.0); Mean Corpuscular HGB CONC 33.7 g/dL (32.0-36.0); Mean Corpuscular Hemoglobin 34.7 pg (27.0-31.0); Mean Corpuscular Volume 103.1 fl (78.0-98.0); Mean Platelet Volume 9.5 fL (7.4-10.4); Platelet Count 200 10x3/uL (130-400); RBC Distribution Width 13.2 % (11.5-14.5); Red Blood Cell (RBC) Count 2.88 mill/uL (4.20-5.40); White Blood Cell (WBC) Count 7.4 10x3/uL (4.8-10.8)
[2023-01-17 10:19] LABS: INR-International Normal Ratio 1.2; PTT 36.6 sec (22.9-36.1); Prothrombin Time 15.6 sec (12.0-14.7)
[2023-01-17 10:29] LABS: ALT (SGPT) 11 U/L (8-55); AST (SGOT) 16 U/L (5-34); Albumin 3.6 g/dL (3.5-5.0); Alkaline Phosphatase 42 U/L (40-110); Anion Gap 16 mmol/L (10-20); BUN (Urea Nitrogen) 36 mg/dL (9.8-20.1); Bilirubin, Total 0.4 mg/dL (0.2-1.2); Calc. Creatinine Clearance 0 mL/min (70-130); Calcium 9.9 mg/dL (7.8-10.44); Carbon Dioxide 26 mmol/L (22-29); Chloride 98 mmol/L (98-107); Estimated GFR 6; Glucose 152 mg/dL (70-105); Potassium 3.8 mmol/L (3.5-5.1); Protein, Total 6.6 g/dL (6.0-8.3); Sodium 136 mmol/L (136-145)
== END 2023-01-17 12:52 | disposition home or self-care (01) ==
LOC: ERS 09:37
DX: S09.90XA Unspecified injury of head, initial encounter (principal); D64.9 Anemia, unspecified; I13.2 Hypertensive heart and chronic kidney disease with heart failure and with stage 5 chronic kidney disease, or end stage renal disease; I50.9 Heart failure, unspecified; N18.6 End stage renal disease; E11.22 Type 2 diabetes mellitus with diabetic chronic kidney disease; I25.10 Atherosclerotic heart disease of native coronary artery without angina pectoris; E78.5 Hyperlipidemia, unspecified; E11.40 Type 2 diabetes mellitus with diabetic neuropathy, unspecified; Z87.891 Personal history of nicotine dependence; Z79.899 Other long term (current) drug therapy; Z79.01 Long term (current) use of anticoagulants; W18.30XA Fall on same level, unspecified, initial encounter
CPT/HCPCS: 36415; 70450; 71045; 80053; 85025; 85610; 85730; 93005

== ENCOUNTER 2023-02-03 21:13 | Emergency (ER) | payer OTHER ==
[2023-02-04 00:25] LABS: #Basophils 0.1 thou/uL (0.0-0.2); #Eosinphils 0.3 thou/uL (0.0-0.7); #Monocytes 0.6 thou/uL (0.11-0.59); #Neutrophils 3.9 thou/uL (1.40-6.50); %Basophils 0.8 % (0.0-1.0); %Eosinophils 4.4 % (0.0-10.0); %Lymphocytes 27.3 % (21.0-51.0); %Monocytes 8.5 % (0.0-10.0); %Neutrophils 58.8 % (42.0-75.0); Hematocrit 30.2 % (36.0-47.0); Hemoglobin 10.1 g/dL (12.0-16.0); Mean Corpuscular HGB CONC 33.4 g/dL (32.0-36.0); Mean Corpuscular Hemoglobin 34.5 pg (27.0-31.0); Mean Corpuscular Volume 103.1 fl (78.0-98.0); Mean Platelet Volume 9.1 fL (7.4-10.4); Platelet Count 201 10x3/uL (130-400); RBC Distribution Width 13.2 % (11.5-14.5); Red Blood Cell (RBC) Count 2.93 mill/uL (4.20-5.40); White Blood Cell (WBC) Count 6.6 10x3/uL (4.8-10.8)
[2023-02-04 00:48] LABS: ALT (SGPT) 10 U/L (8-55); AST (SGOT) 15 U/L (5-34); Albumin 3.9 g/dL (3.5-5.0); Alkaline Phosphatase 38 U/L (40-110); Anion Gap 14 mmol/L (10-20); BUN (Urea Nitrogen) 31 mg/dL (9.8-20.1); Bilirubin, Total 0.5 mg/dL (0.2-1.2); Calc. Creatinine Clearance 0 mL/min (70-130); Calcium 8.9 mg/dL (7.8-10.44); Carbon Dioxide 29 mmol/L (22-29); Chloride 99 mmol/L (98-107); Estimated GFR 8; Globulin 2.5 g/dL (2.4-3.5); Glucose 76 mg/dL (70-105); INR-International Normal Ratio 1.2; Protein, Total 6.4 g/dL (6.0-8.3); Prothrombin Time 15.5 sec (12.0-14.7); Sodium 138 mmol/L (136-145)
[2023-02-04 00:49] LABS: PTT 34.5 sec (22.9-36.1)
== END 2023-02-04 03:07 ==
LOC: ERS 21:13
DX: T82.590A Other mechanical complication of surgically created arteriovenous fistula, initial encounter (principal); I13.2 Hypertensive heart and chronic kidney disease with heart failure and with stage 5 chronic kidney disease, or end stage renal disease; I50.9 Heart failure, unspecified; N18.6 End stage renal disease; E11.22 Type 2 diabetes mellitus with diabetic chronic kidney disease; E11.40 Type 2 diabetes mellitus with diabetic neuropathy, unspecified; Z87.891 Personal history of nicotine dependence; Z99.2 Dependence on renal dialysis
CPT/HCPCS: 36415; 80053; 85025; 85610; 85730

== ENCOUNTER 2023-10-21 11:43 | Emergency (ER) | payer MEDICAID ==
[2023-10-21 13:01] LABS: #Basophils 0.03 10x3/uL (0.0-0.2); %Basophils 0.6 % (0.0-1.0); %Eosinophils 2.1 % (0.0-10.0); %Lymphocytes 13.3 % (21.0-51.0); %Monocytes 7.7 % (0.0-10.0); %Neutrophils 76.1 % (42.0-75.0); Hematocrit 32.6 % (36.0-47.0); Mean Corpuscular HGB CONC 33.7 g/dL (32.0-36.0); Mean Corpuscular Hemoglobin 33.5 pg (27.0-31.0); Mean Corpuscular Volume 99.4 fL (78.0-98.0); Mean Platelet Volume 9.2 fL (7.4-10.4); Platelet Count 186 10x3/uL (130-400); RBC Distribution Width 12.6 % (11.5-14.5); Red Blood Cell (RBC) Count 3.28 mill/uL (4.20-5.40)
[2023-10-21 13:29] LABS: ALT (SGPT) 13 U/L (8-55); AST (SGOT) 21 U/L (5-34); Albumin 3.3 g/dL (3.5-5.0); Alkaline Phosphatase 48 U/L (40-110); Anion Gap 20 mmol/L (10-20); BUN (Urea Nitrogen) 92 mg/dL (9.8-20.1); Bilirubin, Total 0.5 mg/dL (0.2-1.2); Calc. Creatinine Clearance 0 mL/min (70-130); Carbon Dioxide 22 mmol/L (22-29); Chloride 95 mmol/L (98-107); Estimated GFR 5; Globulin 3.4 g/dL (2.4-3.5); Glucose 81 mg/dL (70-105); Lipase 35 U/L (8-78); Potassium 5.5 mmol/L (3.5-5.1); Protein, Total 6.7 g/dL (6.0-8.3); Sodium 131 mmol/L (136-145)
[2023-10-21] MEDS ORDERED: Heparin 10,000 UNITS/ 10 ML VIAL ONE (14:29)
[2023-10-21 16:32] LABS: HBSAB Concentration Less than 8.00 mIU/mL; HBsAg Index 0.26 S/CO (0-0.99); Hep B Core Total Ab NONREACTIVE (NonReactive); Hep B Core Total Index 0.14 S/CO (0-0.79); Hep B Surf AB NONREACTIVE (NonReactive); Hep B Surf Ag NONREACTIVE S/CO (NonReactive); Hep C IgG Ab NONREACTIVE S/CO (NonReactive); Hep C Index 0.22 S/CO (0-0.79)
== END 2023-10-21 23:20 | disposition home or self-care (01) ==
LOC: ERS 11:43
DX: I13.2 Hypertensive heart and chronic kidney disease with heart failure and with stage 5 chronic kidney disease, or end stage renal disease (principal); I50.9 Heart failure, unspecified; N18.6 End stage renal disease; E87.5 Hyperkalemia; E11.42 Type 2 diabetes mellitus with diabetic polyneuropathy; Z87.891 Personal history of nicotine dependence
CPT/HCPCS: 36415; 80053; 83605; 83690; 83880; 84484; 85025; 86704; 86706; 86803; 87340; 93005; 99284; J1644

== ENCOUNTER 2023-10-27 09:48 | Outpatient (CLI) | payer MEDICAID | END 2023-10-27 09:49 | disposition home or self-care (01) | LOC: BICMAMMO 09:48 | PROVIDERS: ATTEND Nurse Practitioner Primary Care | DX: N63.20 Unspecified lump in the left breast, unspecified quadrant (principal) | CPT/HCPCS: 77066; G0279 ==

== ENCOUNTER 2024-01-14 19:13 | Inpatient (IN) | payer MEDICAID, OTHER ==
[2024-01-14 19:46] LABS: #Basophils 0.04 10x3/uL (0.0-0.2); %Basophils 0.6 % (0.0-1.0); %Eosinophils 2.7 % (0.0-10.0); %Lymphocytes 14.3 % (21.0-51.0); %Monocytes 11.6 % (0.0-10.0); %Neutrophils 70.5 % (42.0-75.0); Hematocrit 30.7 % (36.0-47.0); Mean Corpuscular HGB CONC 32.6 g/dL (32.0-36.0); Mean Corpuscular Hemoglobin 33.6 pg (27.0-31.0); Mean Platelet Volume 9.6 fL (7.4-10.4); Platelet Count 217 10x3/uL (130-400); RBC Distribution Width 14.4 % (11.5-14.5); Red Blood Cell (RBC) Count 2.98 mill/uL (4.20-5.40)
[2024-01-14 20:04] LABS: ALT (SGPT) 11 U/L (8-55); AST (SGOT) 27 U/L (5-34); Albumin 3.3 g/dL (3.5-5.0); Alkaline Phosphatase 54 U/L (40-110); Anion Gap 19 mmol/L (10-20); BUN (Urea Nitrogen) 74 mg/dL (9.8-20.1); Bilirubin, Total 0.5 mg/dL (0.2-1.2); Calc. Creatinine Clearance 0 mL/min (70-130); Calcium 8.3 mg/dL (7.8-10.44); Carbon Dioxide 21 mmol/L (22-29); Chloride 102 mmol/L (98-107); Estimated GFR 6; Globulin 3.7 g/dL (2.4-3.5); Glucose 121 mg/dL (70-105); Potassium 5.6 mmol/L (3.5-5.1); Sodium 136 mmol/L (136-145)
[2024-01-14] MEDS ORDERED: Ondansetron PF 4 MG/2 ML Vial ONE (20:18)
[2024-01-14] MEDS ORDERED: traMADol HCl 50 MG TAB PO PRN (20:40)
[2024-01-14] MEDS ORDERED: Ondansetron ODT 4 MG TAB PO PRN (20:40)
[2024-01-14] MEDS ORDERED: Ondansetron PF 4 MG/2 ML Vial IVP PRN (20:40)
[2024-01-14] MEDS ORDERED: Dextrose 5% in Water 1,000 ML IV PRN (20:50)
[2024-01-14] MEDS ORDERED: Dextrose 50% Abboject 50 ML SYRINGE SLOW IVP PRN (20:50)
[2024-01-14] MEDS ORDERED: Insulin Lispro 100 UNIT/ML 10 ML VIAL SC PRN ×2 (20:50)
[2024-01-14] MEDS ORDERED: Glucagon 1 MG/ML KIT IM PRN (20:50)
[2024-01-14] MEDS ORDERED: Nystatin Powder 15 GM BOT TOP PRN (21:31)
[2024-01-14] MEDS: LOKELMA 10 GM PACKET PO SCH (22:51)
[2024-01-14] MEDS: Sacubitril 24MG/Valsartan 26 MG TAB PO SCH (23:16)
[2024-01-14] MEDS: cefTRIAXone\\ROCEPHIN 1 GM in Sodium Chloride 0.9% 100 ML IVPB SCH (23:16)
[2024-01-14] MEDS: Atorvastatin Calcium 40 MG TAB PO SCH (23:17)
[2024-01-14] MEDS: Fluconazole In NaCl,Iso-Osm 200 MG in Premix 1 BAG IVPB SCH (23:17)
[2024-01-15 00:39] VITALS: BMI 36.7
[2024-01-15 04:33] LABS: #Basophils 0.03 10x3/uL (0.0-0.2); %Basophils 0.5 % (0.0-1.0); %Lymphocytes 16.8 % (21.0-51.0); %Monocytes 10.2 % (0.0-10.0); %Neutrophils 70.1 % (42.0-75.0); Hematocrit 28.8 % (36.0-47.0); Hemoglobin 9.2 g/dL (12.0-16.0); Mean Corpuscular HGB CONC 31.9 g/dL (32.0-36.0); Mean Corpuscular Hemoglobin 33.2 pg (27.0-31.0); Mean Platelet Volume 9.6 fL (7.4-10.4); Platelet Count 188 10x3/uL (130-400); RBC Distribution Width 14.1 % (11.5-14.5); Red Blood Cell (RBC) Count 2.77 mill/uL (4.20-5.40)
[2024-01-15 04:51] LABS: ALT (SGPT) 10 U/L (8-55); AST (SGOT) 13 U/L (5-34); Alkaline Phosphatase 49 U/L (40-110); Anion Gap 19 mmol/L (10-20); BUN (Urea Nitrogen) 72 mg/dL (9.8-20.1); Bilirubin, Total 0.4 mg/dL (0.2-1.2); Calc. Creatinine Clearance 12 mL/min (70-130); Calcium 7.9 mg/dL (7.8-10.44); Carbon Dioxide 20 mmol/L (22-29); Chloride 104 mmol/L (98-107); Estimated GFR 5; Globulin 3.4 g/dL (2.4-3.5); Glucose 81 mg/dL (70-105); Protein, Total 6.4 g/dL (6.0-8.3); Sodium 138 mmol/L (136-145)
[2024-01-15] MEDS ORDERED: Ibuprofen 100 MG/5 ML UDCUP PO PRN (08:30)
[2024-01-15] MEDS ORDERED: Apixaban 5 MG TAB PO SCH ×2 (09:00)
[2024-01-15] MEDS ORDERED: Isosorbide Mononitrate 30 MG ER.TAB PO SCH (09:00)
[2024-01-15] MEDS ORDERED: Fluconazole In NaCl,Iso-Osm 200 MG in Premix 1 BAG IVPB SCH (09:00)
[2024-01-15] MEDS ORDERED: Non-Formulary Item 1 EACH (Budesonide-Formoterol [Symbicort 80-4.5] 80 MG/4.5 MG Aer) INH SCH (09:00)
[2024-01-15] MEDS ORDERED: Iopamidol 370 76% 100 ML VIAL ONE (09:53)
[2024-01-15] MEDS: Aspirin 81 mg Enteric Coated Tablet PO SCH (09:57)
[2024-01-15] MEDS: Folic Acid/Vit B Comp W-C PO SCH (09:58)
[2024-01-15] MEDS: Sevelamer Carbonate 800 MG TAB PO SCH (09:58)
[2024-01-15] MEDS: Ibuprofen 200 MG TAB PO PRN (09:58)
[2024-01-15] MEDS: Isosorbide Mononitrate 30 MG ER.TAB PO SCH (09:58)
[2024-01-15] MEDS: Carvedilol 6.25 MG TAB PO SCH (09:58)
[2024-01-15] MEDS: Sacubitril 24MG/Valsartan 26 MG TAB PO SCH (09:59)
[2024-01-15] MEDS: Apixaban 2.5 MG TAB PO SCH (10:00)
[2024-01-15] MEDS: Nystatin Powder 15 GM BOT TOP SCH (10:06)
[2024-01-15] MEDS: Promethazine HCl 12.5 MG in Sodium Chloride 0.9% 50 ML IVPB SCH (10:32)
[2024-01-15] MEDS: Doxycycline 100 MG in Sodium Chloride 0.9% 100 ML IVPB SCH (11:01)
[2024-01-15 13:21] LABS: Influenza A by NAA Not Detected (NotDetected); Influenza B by NAA Not Detected (NotDetected); RSV by NAA Not Detected (NotDetected); SARS-CoV-2 NAA Rapid Test DETECTED (NotDetected)
[2024-01-15] MEDS ORDERED: Fluconazole In NaCl,Iso-Osm 100 MG in Admixture Fee 2 EACH IVPB SCH (18:00)
[2024-01-15] MEDS: Mometasone 100 MCG/Formoterol 5 MCG 120 PUFF INHALER INH SCH (18:31)
[2024-01-15] MEDS: Gabapentin 300 MG CAP PO SCH (20:48)
[2024-01-15] MEDS: FLUoxetine HCl 20 MG CAP PO SCH (20:49)
[2024-01-15] MEDS: Pantoprazole DR 40 MG TAB PO SCH (20:49)
[2024-01-15] MEDS ORDERED: Gabapentin 100 MG CAP PO SCH (21:00)
[2024-01-15] MEDS ORDERED: Non-Formulary Item 1 EACH (Fluoxetine Hcl [Prozac] 40 MG Capsule) PO SCH (21:00)
[2024-01-15] MEDS ORDERED: Non-Formulary Item 1 EACH (Fluvoxamine Maleate [Fluvoxamine Maleate] 50 MG Tablet) PO SCH (21:00)
[2024-01-16 07:30] LABS: #Basophils 0.05 10x3/uL (0.0-0.2); %Eosinophils 4.5 % (0.0-10.0); %Lymphocytes 23.8 % (21.0-51.0); %Monocytes 10.2 % (0.0-10.0); %Neutrophils 60.3 % (42.0-75.0); Hematocrit 29.2 % (36.0-47.0); Hemoglobin 9.1 g/dL (12.0-16.0); Mean Corpuscular HGB CONC 31.2 g/dL (32.0-36.0); Mean Corpuscular Volume 105.8 fL (78.0-98.0); Mean Platelet Volume 9.9 fL (7.4-10.4); Platelet Count 192 10x3/uL (130-400); RBC Distribution Width 14.5 % (11.5-14.5); Red Blood Cell (RBC) Count 2.76 mill/uL (4.20-5.40)
[2024-01-16 07:55] LABS: Anion Gap 18 mmol/L (10-20); BUN (Urea Nitrogen) 73 mg/dL (9.8-20.1); Calc. Creatinine Clearance 12 mL/min (70-130); Calcium 7.9 mg/dL (7.8-10.44); Carbon Dioxide 17 mmol/L (22-29); Chloride 107 mmol/L (98-107); Estimated GFR 5; Glucose 68 mg/dL (70-105); Magnesium 2.3 mg/dL (1.6-2.6); Potassium 5.4 mmol/L (3.5-5.1); Sodium 137 mmol/L (136-145)
[2024-01-16 09:12] LABS: HBSAB Concentration Less than 8.00 mIU/mL; HBsAg Index 0.27 S/CO (0-0.99); Hep B Core Total Ab NONREACTIVE (NonReactive); Hep B Core Total Index 0.12 S/CO (0-0.79); Hep B Surf AB NONREACTIVE (NonReactive); Hep B Surf Ag NONREACTIVE S/CO (NonReactive); Hep C IgG Ab NONREACTIVE S/CO (NonReactive); Hep C Index 0.18 S/CO (0-0.79)
[2024-01-16] MEDS: Dextrose 50% Abboject 50 ML SYRINGE SLOW IVP SCH (10:04)
[2024-01-16] MEDS: hydrALAZINE 20 MG/ML VIAL SLOW IVP SCH (10:05)
[2024-01-16] MEDS: traMADol HCl 50 MG TAB PO PRN (10:07)
[2024-01-16] MEDS: Insulin Regular, Human 100 UNIT/ML 10 ML VIAL IVP SCH (10:07)
[2024-01-16] MEDS: Promethazine HCl 12.5 MG in Sodium Chloride 0.9% 50 ML IVPB SCH (11:56)
[2024-01-16] MEDS ORDERED: Heparin 10,000 UNITS/ 10 ML VIAL ONE (14:08)
[2024-01-17 06:25] LABS: #Basophils 0.05 10x3/uL (0.0-0.2); %Basophils 0.5 % (0.0-1.0); %Eosinophils 0.6 % (0.0-10.0); %Lymphocytes 8.7 % (21.0-51.0); %Neutrophils 83.8 % (42.0-75.0); Hematocrit 31.7 % (36.0-47.0); Hemoglobin 10.2 g/dL (12.0-16.0); Mean Corpuscular HGB CONC 32.2 g/dL (32.0-36.0); Mean Corpuscular Volume 102.6 fL (78.0-98.0); Mean Platelet Volume 9.8 fL (7.4-10.4); Platelet Count 206 10x3/uL (130-400); RBC Distribution Width 14.3 % (11.5-14.5); Red Blood Cell (RBC) Count 3.09 mill/uL (4.20-5.40)
[2024-01-17 06:37] LABS: Anion Gap 16 mmol/L (10-20); BUN (Urea Nitrogen) 42 mg/dL (9.8-20.1); Calc. Creatinine Clearance 17 mL/min (70-130); Calcium 8.9 mg/dL (7.8-10.44); Carbon Dioxide 25 mmol/L (22-29); Chloride 103 mmol/L (98-107); Estimated GFR 8; Glucose 63 mg/dL (70-105); Potassium 4.2 mmol/L (3.5-5.1); Sodium 140 mmol/L (136-145)
[2024-01-17] MEDS: Sacubitril 24MG/Valsartan 26 MG TAB PO SCH (10:22)
[2024-01-17] MEDS: Folic Acid 1 MG TAB PO SCH (10:22)
[2024-01-17] MEDS ORDERED: Enalaprilat Dihydrate 1.25 MG/ML VIAL SLOW IVP PRN (10:50)
[2024-01-17] MEDS ORDERED: Labetalol HCl 100 MG/20 ML VIAL SLOW IVP PRN (10:50)
[2024-01-17] MEDS ORDERED: hydrALAZINE 20 MG/ML VIAL SLOW IVP PRN (11:03)
[2024-01-17] MEDS: EPOETIN ALFA-EPBX (ESRD) 10,000 UNITS/ML VIAL SC SCH (15:45)
[2024-01-17] MEDS: Apixaban 5 MG TAB PO SCH (21:52)
[2024-01-18 05:57] LABS: Anion Gap 17 mmol/L (10-20); BUN (Urea Nitrogen) 51 mg/dL (9.8-20.1); Calc. Creatinine Clearance 15 mL/min (70-130); Calcium 8.3 mg/dL (7.8-10.44); Carbon Dioxide 23 mmol/L (22-29); Cardiac Risk 2.3 (Less than 4.5); Chloride 101 mmol/L (98-107); Cholesterol 118 mg/dl (< 200 Desired); Estimated GFR 7; Glucose 76 mg/dL (70-105); HDL Cholesterol 51 mg/dL (>60 Neg Risk); LDL Cholesterol, Calculated 51 mg/dL; Potassium 5.2 mmol/L (3.5-5.1); Sodium 136 mmol/L (136-145); Triglycerides 81 mg/dL (Less than 150)
[2024-01-18] MEDS: Isosorbide Mononitrate 30 MG ER.TAB PO SCH (10:42)
[2024-01-18] MEDS: Doxycycline 100 MG CAP PO SCH ×2 (13:05→21:35)
[2024-01-18] MEDS: Cefdinir 300 MG CAP PO SCH (21:36)
[2024-01-19 04:54] LABS: Hemoglobin A1c 4.6 % (4.0-6.0)
[2024-01-19 04:55] LABS: #Basophils 0.04 10x3/uL (0.0-0.2); %Basophils 0.8 % (0.0-1.0); %Eosinophils 4.9 % (0.0-10.0); %Lymphocytes 26.2 % (21.0-51.0); %Monocytes 10.8 % (0.0-10.0); %Neutrophils 57.1 % (42.0-75.0); Hematocrit 27.2 % (36.0-47.0); Hemoglobin 8.9 g/dL (12.0-16.0); Mean Corpuscular HGB CONC 32.7 g/dL (32.0-36.0); Mean Corpuscular Hemoglobin 33.5 pg (27.0-31.0); Mean Corpuscular Volume 102.3 fL (78.0-98.0); Mean Platelet Volume 9.4 fL (7.4-10.4); Platelet Count 172 10x3/uL (130-400); Red Blood Cell (RBC) Count 2.66 mill/uL (4.20-5.40)
[2024-01-19 05:00] LABS: Anion Gap 13 mmol/L (10-20); BUN (Urea Nitrogen) 25 mg/dL (9.8-20.1); Calc. Creatinine Clearance 23 mL/min (70-130); Calcium 8.5 mg/dL (7.8-10.44); Carbon Dioxide 27 mmol/L (22-29); Chloride 102 mmol/L (98-107); Estimated GFR 11; Glucose 76 mg/dL (70-105); Potassium 3.9 mmol/L (3.5-5.1); Sodium 138 mmol/L (136-145)
[2024-01-19 08:18] LABS: Iron 55 ug/dL (50-170); Iron Binding Capacity, Total 173 mcg/dL (265-497)
[2024-01-19 12:10] VITALS: BP 130/79; TEMP 98.2
[2024-01-22] MEDS ORDERED: Fluconazole 100 MG TAB PO SCH (09:00)
== END 2024-01-19 17:03 | DRG 640 ==
LOC: ERS 19:13 → 2SE 20:50 → INTOOBSV 20:50 → OBSVTOIN 01-16 09:12
PROVIDERS: ADMIT Internal Medicine; ATTEND Family Medicine
DX: E87.5 Hyperkalemia (principal); N18.6 End stage renal disease; U07.1 COVID-19; I13.0 Hypertensive heart and chronic kidney disease with heart failure and stage 1 through stage 4 chronic kidney disease, or unspecified chronic kidney disease; I50.42 Chronic combined systolic (congestive) and diastolic (congestive) heart failure; G45.9 Transient cerebral ischemic attack, unspecified; D63.1 Anemia in chronic kidney disease; I25.10 Atherosclerotic heart disease of native coronary artery without angina pectoris; E78.5 Hyperlipidemia, unspecified; E11.22 Type 2 diabetes mellitus with diabetic chronic kidney disease; E66.01 Morbid (severe) obesity due to excess calories; I16.0 Hypertensive urgency; N61.0 Mastitis without abscess; J44.9 Chronic obstructive pulmonary disease, unspecified; F41.9 Anxiety disorder, unspecified; F32.A Depression, unspecified; L30.4 Erythema intertrigo; I48.0 Paroxysmal atrial fibrillation; Z99.2 Dependence on renal dialysis; Z87.891 Personal history of nicotine dependence; Z68.35 Body mass index [BMI] 35.0-35.9, adult; I25.2 Old myocardial infarction
CPT/HCPCS: 0241U; 36415; 36416; 70450; 70551; 71045; 71260; 74177; 80048; 80053; 80061; 82607; 82728; 83036; 83540; 83550; 83735; 84443; 85025; 86704; 86706; 86803; 86850; 86900; 86901; 87040; 87340; 90935; 93005; 96365; 96367; 96374; 96375; 96376; G0257; G0378; J0360; J0696; J1450; J1644; J1815; J2405; J2550; J7999; Q5105; Q9967

== ENCOUNTER 2024-04-23 16:37 | Observation (INO) | payer OTHER ==
[2024-04-23] MEDS ORDERED: Ondansetron PF 4 MG/2 ML Vial ONE (17:44)
[2024-04-23 18:41] LABS: Anion Gap 22 mmol/L (10-20); BUN (Urea Nitrogen) 86 mg/dL (9.8-20.1); Calc. Creatinine Clearance 0 mL/min (70-130); Calcium 7.6 mg/dL (7.8-10.44); Carbon Dioxide 18 mmol/L (22-29); Chloride 100 mmol/L (98-107); Estimated GFR 5; Glucose 91 mg/dL (70-105); Potassium 5.7 mmol/L (3.5-5.1); Sodium 134 mmol/L (136-145)
[2024-04-23] MEDS ORDERED: Albuterol 2.5 MG (3 mL) NEB ONE (19:28)
[2024-04-23] MEDS ORDERED: CALCIUM GLUC 1 GM/NS 50 ML IV Bag ONE (19:43)
[2024-04-23] MEDS ORDERED: Calcium Carbonate 500 MG ChewTAB PO PRN (20:53)
[2024-04-23 22:07] VITALS: BMI 36.1
[2024-04-23] MEDS: LOKELMA 10 GM PACKET PO SCH (22:46)
[2024-04-23] MEDS: Atorvastatin Calcium 40 MG TAB PO SCH (22:46)
[2024-04-23] MEDS: Apixaban 2.5 MG TAB PO SCH (22:46)
[2024-04-23] MEDS: Gabapentin 300 MG CAP PO SCH (22:47)
[2024-04-23] MEDS: Sacubitril 24MG/Valsartan 26 MG TAB PO SCH (22:47)
[2024-04-24] MEDS: Ondansetron ODT 4 MG TAB PO PRN (04:45)
[2024-04-24 04:52] LABS: #Basophils 0.04 10x3/uL (0.0-0.2); %Basophils 0.9 % (0.0-1.0); %Eosinophils 2.1 % (0.0-10.0); %Lymphocytes 15.3 % (21.0-51.0); %Neutrophils 71.5 % (42.0-75.0); Hematocrit 29.4 % (36.0-47.0); Hemoglobin 9.6 g/dL (12.0-16.0); Mean Corpuscular HGB CONC 32.7 g/dL (32.0-36.0); Mean Corpuscular Hemoglobin 31.7 pg (27.0-31.0); Mean Platelet Volume 10.2 fL (7.4-10.4); Platelet Count 204 10x3/uL (130-400); RBC Distribution Width 12.7 % (11.5-14.5); Red Blood Cell (RBC) Count 3.03 mill/uL (4.20-5.40)
[2024-04-24 05:09] LABS: Albumin 2.8 g/dL (3.5-5.0); Anion Gap 21 mmol/L (10-20); BUN (Urea Nitrogen) 90 mg/dL (9.8-20.1); BUN/Creatinine Ratio 10.68; Calc. Creatinine Clearance 12 mL/min (70-130); Calcium 7.5 mg/dL (7.8-10.44); Carbon Dioxide 18 mmol/L (22-29); Chloride 101 mmol/L (98-107); Estimated GFR 5; Glucose 66 mg/dL (70-105); Potassium 5.9 mmol/L (3.5-5.1); Sodium 134 mmol/L (136-145)
[2024-04-24 07:31] LABS: HBSAB Concentration 54.72 mIU/mL; Hep B Core Total Ab NONREACTIVE (NonReactive); Hep B Core Total Index 0.11 S/CO (0-0.79); Hep B Surf AB REACTIVE (NonReactive); Hep B Surf Ag NONREACTIVE S/CO (NonReactive); Hep C IgG Ab NONREACTIVE S/CO (NonReactive); Hep C Index 0.23 S/CO (0-0.79)
[2024-04-24 07:59] VITALS: TEMP 98.2
[2024-04-24] MEDS: Mometasone 100 MCG/Formoterol 5 MCG 120 PUFF INHALER INH SCH (08:12)
[2024-04-24] MEDS: Famotidine/PF 20 mg/2ml Vial SLOW IVP SCH (08:40)
[2024-04-24] MEDS: Sevelamer Carbonate 800 MG TAB PO SCH (09:24)
[2024-04-24] MEDS: Carvedilol 6.25 MG TAB PO SCH (13:40)
[2024-04-24] MEDS: Isosorbide Mononitrate 30 MG ER.TAB PO SCH (13:41)
[2024-04-24] MEDS: Carvedilol 25 MG TAB PO SCH (13:41)
[2024-04-24] MEDS: Famotidine 20 MG TAB PO SCH (13:44)
[2024-04-24] MEDS: Calcitriol 0.25 MCG CAP PO SCH (15:53)
[2024-04-24 16:04] VITALS: BP 187/85
[2024-04-24] MEDS ORDERED: FLUoxetine HCl 20 MG CAP PO SCH (21:00)
[2024-04-25] MEDS ORDERED: Famotidine/PF 20 mg/2ml Vial SLOW IVP SCH (09:00)
[2024-04-25] MEDS ORDERED: Famotidine 20 MG TAB PO SCH (09:00)
[2024-05-05] MEDS ORDERED: Ergocalciferol 1.25 MG(50,000 UNITS) CAP PO SCH (09:00)
== END 2024-04-24 18:31 ==
LOC: ERS 16:37 → 2NO 20:34
PROVIDERS: ADMIT Student in an Organized Health Care Education/Training Program; ATTEND Internal Medicine
DX: I13.2 Hypertensive heart and chronic kidney disease with heart failure and with stage 5 chronic kidney disease, or end stage renal disease (principal); N18.6 End stage renal disease; I50.20 Unspecified systolic (congestive) heart failure; I48.91 Unspecified atrial fibrillation; E87.5 Hyperkalemia; E83.51 Hypocalcemia; E66.01 Morbid (severe) obesity due to excess calories; D63.1 Anemia in chronic kidney disease; J44.9 Chronic obstructive pulmonary disease, unspecified; N64.59 Other signs and symptoms in breast; N25.81 Secondary hyperparathyroidism of renal origin; Z99.2 Dependence on renal dialysis; Z86.73 Personal history of transient ischemic attack (TIA), and cerebral infarction without residual deficits; Z88.8 Allergy status to other drugs, medicaments and biological substances; Z79.51 Long term (current) use of inhaled steroids; Z79.01 Long term (current) use of anticoagulants; Z79.899 Other long term (current) drug therapy
CPT/HCPCS: 36415; 36416; 80069; 82306; 83880; 83970; 85025; 86704; 86706; 86803; 87340; 90935; 93005; 94644; 96374; 96375; G0257; G0378; J0613; J2405; J7611; Q0162

== ENCOUNTER 2024-12-21 07:55 | Inpatient (IN) | payer MEDICAID ==
[2024-12-21 08:40] LABS: #Basophils 0.04 10x3/uL (0.0-0.2); #Eosinophils 0.18 10x3/uL (0.0-0.7); #Monocytes 0.38 10x3/uL (0.11-0.59); #Neutrophils 5.63 10x3/uL (1.40-6.50); %Basophils 0.6 % (0.0-1.0); %Eosinophils 2.6 % (0.0-10.0); %Lymphocytes 8.6 % (21.0-51.0); %Monocytes 5.6 % (0.0-10.0); %Neutrophils 82.3 % (42.0-75.0); Hematocrit 33.1 % (36.0-47.0); Hemoglobin 10.6 g/dL (12.0-16.0); Mean Corpuscular Hemoglobin 31.9 pg (27.0-31.0); Mean Corpuscular Volume 99.7 fL (78.0-98.0); Platelet Count 159 10x3/uL (130-400); Red Blood Cell (RBC) Count 3.32 mill/uL (4.20-5.40); White Blood Cell (WBC) Count 6.84 10x3/uL (4.8-10.8)
[2024-12-21] MEDS ORDERED: hydrALAZINE 20 MG/ML VIAL ONE (08:41)
[2024-12-21 08:53] LABS: ALT (SGPT) 8 U/L (Less than 34); AST (SGOT) 26 U/L (11-34); Albumin 3.4 g/dL (3.1-4.5); Alkaline Phosphatase 39 U/L (40-110); Anion Gap 19 mmol/L (10-20); BUN (Urea Nitrogen) 43 mg/dL (9.8-20.1); Bilirubin, Total 0.5 mg/dL (0.3-1.2); Calc. Creatinine Clearance 0 mL/min (70-130); Calcium 9.0 mg/dL (7.8-10.44); Carbon Dioxide 20 mmol/L (23-31); Chloride 103 mmol/L (98-107); Globulin 3.6 g/dL (2.4-3.5); Glucose 95 mg/dL (80-115); Potassium 5.0 mmol/L (3.5-5.1); Sodium 137 mmol/L (136-145)
[2024-12-21 09:50] LABS: Bacteria/HPF 2+ HPF (None Seen); CAUTI Indications for Culture Dysuria,urgency,freq; Glucose, Urine (Dipstick) Normal (Negative); Leukocyte 500 Leu/uL (Negative); Protein, Urine (Dipstick) 200 mg/dL (Neg-Trace); RBC/HPF 0-3 HPF (0-3); Specific Gravity, Urine 1.012 (1.002-1.036); WBC/HPF Greater than 50 HPF (0-3)
[2024-12-21 09:51] LABS: Urine Culture Reflex Yes Yes
[2024-12-21] MEDS ORDERED: Acetaminophen 325 MG TAB PO PRN (10:02)
[2024-12-21] MEDS ORDERED: Ondansetron PF 4 MG/2 ML Vial IVP PRN (10:02)
[2024-12-21] MEDS ORDERED: Acetaminophen/Codeine 30-300mg Tablet PO PRN (10:02)
[2024-12-21] MEDS ORDERED: Calcium Carbonate 500 MG ChewTAB PO PRN (10:02)
[2024-12-21] MEDS ORDERED: cloNIDine 0.1 MG TAB PO PRN (10:05)
[2024-12-21] MEDS: Apixaban 5 MG TAB PO SCH (14:31)
[2024-12-21] MEDS: Carvedilol 6.25 MG TAB PO SCH ×2 (14:32→21:09)
[2024-12-21] MEDS ORDERED: GUAIFENESIN 1200 MG PO PRN (17:26)
[2024-12-21] MEDS ORDERED: Nitroglycerin 0.4 MG TAB (25 Tab Bottle) SL PRN (17:26)
[2024-12-21] MEDS: Mometasone 100 MCG/Formoterol 5 MCG 120 PUFF INHALER INH SCH (18:39)
[2024-12-21] MEDS: Pantoprazole 40 MG DR.TAB PO SCH (21:10)
[2024-12-21] MEDS: Furosemide 40 MG TAB PO SCH (21:10)
[2024-12-21] MEDS: Fioricet 325/50/40 mg Tablet PO PRN (21:11)
[2024-12-21] MEDS: Sacubitril 24MG/Valsartan 26 MG TAB PO SCH (21:11)
[2024-12-21] MEDS: Melatonin 3 MG TAB PO PRN (21:11)
[2024-12-22 05:39] LABS: #Basophils Less than 0.03 10x3/uL (0.0-0.2); #Eosinophils Less than 0.03 10x3/uL (0.0-0.7); #Monocytes 0.20 10x3/uL (0.11-0.59); #Neutrophils 3.45 10x3/uL (1.40-6.50); %Basophils 0.0 % (0.0-1.0); %Eosinophils 0.0 % (0.0-10.0); %Lymphocytes 7.3 % (21.0-51.0); %Monocytes 5.1 % (0.0-10.0); %Neutrophils 87.1 % (42.0-75.0); Hematocrit 34.8 % (36.0-47.0); Hemoglobin 11.0 g/dL (12.0-16.0); Mean Corpuscular Hemoglobin 31.4 pg (27.0-31.0); Mean Corpuscular Volume 99.4 fL (78.0-98.0); Platelet Count 178 10x3/uL (130-400); Red Blood Cell (RBC) Count 3.50 mill/uL (4.20-5.40); White Blood Cell (WBC) Count 3.96 10x3/uL (4.8-10.8)
[2024-12-22 06:34] LABS: ALT (SGPT) 7 U/L (Less than 34); AST (SGOT) 19 U/L (11-34); Albumin 3.5 g/dL (3.1-4.5); Alkaline Phosphatase 42 U/L (40-110); Anion Gap 17 mmol/L (10-20); BUN (Urea Nitrogen) 29 mg/dL (9.8-20.1); Bilirubin, Total 0.6 mg/dL (0.3-1.2); Calc. Creatinine Clearance 17 mL/min (70-130); Calcium 9.5 mg/dL (7.8-10.44); Carbon Dioxide 24 mmol/L (23-31); Chloride 100 mmol/L (98-107); Globulin 3.7 g/dL (2.4-3.5); Glucose 108 mg/dL (80-115); Potassium 4.1 mmol/L (3.5-5.1); Sodium 137 mmol/L (136-145)
[2024-12-22] MEDS: Isosorbide Mononitrate 30 MG ER.TAB.S PO SCH (08:24)
[2024-12-22] MEDS: Calcitriol 0.25 MCG CAP PO SCH (08:28)
[2024-12-22] MEDS ORDERED: Isosorbide Mononitrate 30 MG ER.TAB.S PO SCH (09:00)
[2024-12-22] MEDS: NIFEdipine XL 30 MG ER.TAB PO SCH (14:14)
[2024-12-22] MEDS: Nystatin Powder 15 GM BOT TOP PRN (14:14)
[2024-12-22] MEDS: Benzonatate 100 MG CAP PO SCH (14:14)
[2024-12-22] MEDS: Apixaban 5 MG TAB PO SCH (20:57)
[2024-12-22] MEDS: Guaifenesin DM 100-10/5 ML UDCUP PO PRN (20:58)
[2024-12-22] MEDS ORDERED: Apixaban 2.5 MG TAB PO SCH (21:00)
[2024-12-23 06:11] LABS: Anion Gap 15 mmol/L (10-20); BUN (Urea Nitrogen) 54 mg/dL (9.8-20.1); Calc. Creatinine Clearance 13 mL/min (70-130); Calcium 9.2 mg/dL (7.8-10.44); Carbon Dioxide 25 mmol/L (23-31); Chloride 100 mmol/L (98-107); Glucose 79 mg/dL (80-115); Magnesium 2.2 mg/dL (1.6-2.6); Potassium 4.3 mmol/L (3.5-5.1)
[2024-12-23 06:23] LABS: Sodium 136 mmol/L (136-145)
[2024-12-23] MEDS: NIFEdipine XL 30 MG ER.TAB PO SCH (08:46)
[2024-12-24 06:42] LABS: #Basophils 0.05 10x3/uL (0.0-0.2); #Eosinophils 0.23 10x3/uL (0.0-0.7); #Monocytes 0.50 10x3/uL (0.11-0.59); #Neutrophils 4.56 10x3/uL (1.40-6.50); %Basophils 0.8 % (0.0-1.0); %Eosinophils 3.7 % (0.0-10.0); %Lymphocytes 14.9 % (21.0-51.0); %Monocytes 7.9 % (0.0-10.0); %Neutrophils 72.4 % (42.0-75.0); Hematocrit 34.9 % (36.0-47.0); Hemoglobin 11.0 g/dL (12.0-16.0); Mean Corpuscular Hemoglobin 31.3 pg (27.0-31.0); Mean Corpuscular Volume 99.4 fL (78.0-98.0); Platelet Count 197 10x3/uL (130-400); Red Blood Cell (RBC) Count 3.51 mill/uL (4.20-5.40); White Blood Cell (WBC) Count 6.30 10x3/uL (4.8-10.8)
[2024-12-24 07:01] LABS: Anion Gap 15 mmol/L (10-20); BUN (Urea Nitrogen) 62 mg/dL (9.8-20.1); Calc. Creatinine Clearance 12 mL/min (70-130); Calcium 9.1 mg/dL (7.8-10.44); Carbon Dioxide 25 mmol/L (23-31); Chloride 100 mmol/L (98-107); Glucose 71 mg/dL (80-115); Magnesium 2.2 mg/dL (1.6-2.6); Potassium 4.3 mmol/L (3.5-5.1); Sodium 136 mmol/L (136-145)
[2024-12-24] MEDS ORDERED: Benzonatate 100 MG CAP PO PRN (15:00)
[2024-12-24 20:17] VITALS: BP 169/71; TEMP 98.4
[2024-12-29] MEDS ORDERED: Ergocalciferol 1.25 MG(50,000 UNITS) CAP PO SCH (09:00)
== END 2024-12-24 20:35 | DRG 640 ==
LOC: ERS 07:55 → ERHOLD 10:02 → T4-A 13:39 → OBSVTOIN 12-22 14:00
PROVIDERS: ADMIT Internal Medicine; ATTEND Internal Medicine
DX: E87.70 Fluid overload, unspecified (principal); J96.01 Acute respiratory failure with hypoxia; N18.6 End stage renal disease; I50.40 Unspecified combined systolic (congestive) and diastolic (congestive) heart failure; I69.954 Hemiplegia and hemiparesis following unspecified cerebrovascular disease affecting left non-dominant side; N25.81 Secondary hyperparathyroidism of renal origin; I13.2 Hypertensive heart and chronic kidney disease with heart failure and with stage 5 chronic kidney disease, or end stage renal disease; J44.9 Chronic obstructive pulmonary disease, unspecified; I48.91 Unspecified atrial fibrillation; I25.10 Atherosclerotic heart disease of native coronary artery without angina pectoris; E66.01 Morbid (severe) obesity due to excess calories; F41.8 Other specified anxiety disorders; E11.40 Type 2 diabetes mellitus with diabetic neuropathy, unspecified; D63.1 Anemia in chronic kidney disease; E78.5 Hyperlipidemia, unspecified; E11.319 Type 2 diabetes mellitus with unspecified diabetic retinopathy without macular edema; E11.22 Type 2 diabetes mellitus with diabetic chronic kidney disease; F01.50 Vascular dementia, unspecified severity, without behavioral disturbance, psychotic disturbance, mood disturbance, and anxiety; Z98.891 History of uterine scar from previous surgery; Z95.1 Presence of aortocoronary bypass graft; Z95.0 Presence of cardiac pacemaker; Z99.2 Dependence on renal dialysis; Z88.8 Allergy status to other drugs, medicaments and biological substances; Z98.890 Other specified postprocedural states; Z83.3 Family history of diabetes mellitus; I25.2 Old myocardial infarction; Z87.891 Personal history of nicotine dependence; Z68.31 Body mass index [BMI] 31.0-31.9, adult; Z79.899 Other long term (current) drug therapy; Z79.01 Long term (current) use of anticoagulants
CPT/HCPCS: 36415; 51701; 71045; 80048; 80053; 81001; 83735; 83880; 84100; 84484; 85025; 87077; 87086; 87426; 93005; 94640; 96374; G0378; J0360; J7620